=== PATIENT | male | born 1945 | race Caucasian/White ===

== ENCOUNTER 2024-04-05 08:13 | Outpatient (RCR) | payer OTHER, SELFPAY ==
--- NOTE | 2024-04-05 21:06 | CTCCONSULT_ITS ---
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 Patient has limited stage small cell lung cancer. Patient has been a smoker since the age of 16 and is a current smoker. Patient unfortunately also had a TURBT on 1013 and was diagnosed with bladder cancer. Patient was planned for chemotherapy with gemcitabine intravesically weekly but patient missed the appointment. Patient was to get gemcitabine and docetaxel weekly appli cation. Patient at baseline is on room air. Patient want to keep his treatment at reportable. He says he saw the foreign broadcast specialist who recommended c hemo RT. He was not offered mediastinoscope he or referral to surgeon for possible lobectomy. He de nies any PFTs being completed at [facility]. Patient was offered chemotherapy with concurrent radiation fol lowed by durvalumab. Patient is here to follow-up on his further care. 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 Education Level - Completed High School Marital Status - Tobacco Use Note - Smoked 58 yrs - 1PPD - still smoking- ETOH Use Note - Denies Drug Note - Denies Abuse/Neglect Note - Denies Social History Note 2 - Lifes with [employer] HISTORY: MEDICATIONS: melatonin atorvastatin doxazosin isosorbide mononitrate vitamin B complex labetalol hydrALAZINE calcium carb-D3-mag ox-zinc ox multivitamin vitamin E ferrous sulfate Vitamin D3 [cholecalciferol (vitamin d3)] CoQ10 SG 100 [ubidecarenone/vitamin e mixed] aspirin ALLERGIES: No Known Drug Allergies REVIEW OF SYSTEMS STATISTICIAN APPLIED: No headache, seizures or blurring of vision. GI: No nausea, vomiting, diarrhea or constipation. CVS: No palpitations or angina pains. Respiratory: No cough, chest pain or shortness of breath. VITAL SIGNS: Date 04/05/2024 Time 8:39 AM Vital Signs, Weight and PS ? ??T (F) (F) 98.6 ??P 80 ??B/P (mmHg) 101/78 ??Height (in) (inch) 70 ??Weight (lb) (lb) 236 ??BSA(D) (m*2) 2.24 PHYSICAL EXAMINATION: Alert oriented x 4 ,on room air thin built oral cavity is dry. Bilateral audible wheezing CVS: Rhythm regular, no murmurs or gallops present. Abdomen is soft. No hepatosplenomegaly. Extremities: No pedal edema or cyanosis. LABORATORY DATA: Date Time ASSESSMENT: #1 Limited stage small cell lung cancer As per documentation at [facility] patient's tumor has increased in size 2 to 3.2 cm left upper lobe solid m ass biopsy-proven to be small cell No other documentation of lymph node 1.8 cm soft tissue irregularity in the anterior urinary bladder wall from bladder cancer s/p TURBT Brain MRI negative PLAN: ??Carboplatin etoposide with the durvalumab with radiation Port catheter placement PFTs Pulmonary referral/cardiothoracic referral if PFTs are acceptable Patient also have cardiac bypass history so is unlikely to be a good candidate for lobectomy and will be a good candidate for chemo RT Radiation oncology referral ORDERS: Comprehensive Metabolic Panel - 12 + CBC with Auto Diff MD Follow Up 3 Week RETURN TO CLINIC: Prechemo lab check in 3 weeks Electrocardiographically signed by Dr. Rascon cc: TANISHA MANCILLA, Referring: JOSEPHINE MANCILLA Electronically Signed {Object.Sanct_Date} at {Object.Sanct_Time} {Object.Sanct_ID*PnP.NameFL@M}, {Object.Sanct_ID*PnP.Suffix@U} Patient: GRETA STEEN : 1945 MR#: [id number] Account: [id number] FOLLOW UP NOTE Page 4 of 4
--- NOTE | 2024-04-11 10:38 | CTCCONSULT_ITS ---
[facility] [address] [place], [place] [address] Consultation Note Date: 04/11/2024 MR#: [id number] Name: GRETA STEEN : 1945 Dx: C34.90 Malignant neoplasm of unspecified part of unspecified bronchus or lung Attending physician. Aylin Taylor MD Referring physician. Jose Rascon MD Reason for consultation. Patient with of Small cell CA lung limited to chest referred for radiation therapy to given along with chemotherapy. History of Present Illness: Patient is a 78-year-old smoker since age 16 who had lung biopsy showing neuroendocrine tumor consistent with small cell lung CA. Chest CT revealed a 24 mm pulmona ry mass left lower lobe as well as 4 mm pulm nodule right lower lobe. Also had TURBT at [facility] for 1.8 cm soft tissue irregularity reportedly revealing bladder CA. Brain MRI negative. Patient has alread y seen Dr. Rascon who has recommended carboplatin etoposide with durvalumab with radiation. Port du s been scheduled. Past Medical History: Hypertension dyslipidemia TURB bladder CA. Meds. 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 Denies cancer history in family Review of Systems: Noncontributory Physical Exam: General: Adequate nourished. Gentleman in no acute distress HEENT: Atraumatic supraclavicular adenopathy CV: Chest clear to auscultation heart rate irregular rhythm ABD: Soft no organomegaly or tenderness EXT: No signs of clubbing or edema Assessment:1. Patient with small cell CA of lung appearing to be limited to left chest. 2. Chemo XRT being planned with chemo being consisting of carboplatin etoposide with durvalumab unde r Dr. Rascon's direction. 3. Spoke to patient regarding 5400 cGy to the involved tumor site in left chest and adjacent hilar m ediastinal region. Side effects are explained. 4. Thank you very much for allowing to evaluate and manage this patient Cc: Cheyanne Taylor MD Electronically signed by: Chaka Zazueta MD, DABR 04/11/2024 10:36 AM
--- NOTE | 2024-04-11 10:39 | CTCTXPLN_ITS ---
[facility] [address] [place] [place], [place] [address] Physician Clinical Treatment Planning Note Date of Service: 04/11/2024 Name: GRETA Paredes.: 1945 The patient has agreed to proceed with Radiation therapy. Tests and supporting medical records were interpreted to assist in defining the tumor location and extent of disease. Further imaging will be necessary to contour and delineate the volume to which the XRT will be provided. A. Treatment Intent: Curative B. Modality: 6 MV C. Requested Technique: VMAT D. Treatment Site: Left chest E. Critical structures to be contoured on plan: F. In order to accomplish this plan, I am ordering/Prescribing the followin. Simulations (s) will be performed to accomplish a reproducible treatment position, to determine op timal treatment portals/beam arrangements, to design beam modifying devices and verify treatment port als on patient prior to the commencement of Radiation Therapy. Left chest 2. Devices; for immobilization and beam shaping: Vac-Purvi 3. CT Guidance for placement of XRT shen Scan area: 4. Portal images Frequency: 5. Invivo transit dose measurement once per week on all VMAT patients. 6. Special Physics Consult Requested for: 7. Other requests: Special procedures someone getting chemo and radiation curative G. Dose Objectives: Electronically signed by: Chaka Zazueta M.D. 04/11/2024 10:36 AM
--- NOTE | 2024-04-11 10:40 | CTCTXPLNST_ITS ---
Radiation Oncology Treatment Planning Sheet Name: GREAT STEEN MR#: [id number] : 1945 Dx: C34.90 Malignant neoplasm of unspecified part of unspecified bronchus or lung Date of Service: 04/11/2024 Account #: ?? Pt Treatment Intent: curative palliative other: Stage: Procedure CPT # Ordered Spec. Procedure 56977 1 Ross Complex (set-up) 47457 T1-T10 1 Ross Simple 58948 IMRT Plan 20829 1 MLC Devices VMAT 65774 3 Ross 3 D 39844 TRTMT dev Complex 36459 1 TRTMT dev simple 00261 Basic Jonathan 60359 9 Special Dosimetry 94431 Spec Physics 48960 Port Films 18775 SRS Cranial/1FX 32157 SBR 5 FX or Less /ex: 5 = 5 fx 16978 IMRT Simple 95018 5400 30 IMRT Complex 77508 IGRT 38533 25 Rad del com 6-10 17376 Rad del com 04-04 88396 Cont Med Physics 66545 6 Treatment Planning 13228 1 Rad del com 20 mev 04731 Rad del inter 10-24 42383 Rad del inter 04-04 64730 Rad del simple 6 80983 Rad del simple 04-04 61695 Special Port Plan 22668 TRTMT dev inter 94428 Isodose Complex 75658 Isodose simple 76754 Resp Motion Mgmt Simulation 09898 Placement of Fiducial Markers 15044 Electronically Signed By: hCaka Zazueta MD, DABR 04/11/2024 10:38 AM
== END 2024-04-15 23:59 | disposition home or self-care (01) ==
LOC: SCTC 08:13
PROVIDERS: PCP Internal Medicine; Referring Provider Internal Medicine; Visit Provider Radiology Therapeutic Radiology
DX: C34.12 Malignant neoplasm of upper lobe, left bronchus or lung (principal); C67.9 Malignant neoplasm of bladder, unspecified; F17.210 Nicotine dependence, cigarettes, uncomplicated
CPT/HCPCS: 99213; G0463

== ENCOUNTER 2024-04-18 08:03 | Outpatient (CLI) | payer OTHER, SELFPAY ==
[2024-04-12 15:33] VITALS: BMI 45.4
[2024-04-17 14:31] LABS: Basophils # (Auto) 0.1 Thou/mm3 (0.0-0.2); Basophils % (Auto) 1 % (0-2.5); Eosinophils # (Auto) 0.6 Thou/mm3 (0.0-0.5); Eosinophils % (Auto) 6 % (0-10); Hematocrit 40.8 % (41.0-53.0); Hemoglobin 13.4 g/dL (13.5-16.0); Immature Granulocytes % (Auto) 0 % (0-0); Immature Granulocytes Auto 0.04 Thou/mm3 (0.00-0.00); Lymphocytes # (Auto) 1.9 Thou/mm3 (1.0-4.8); Lymphocytes % (Auto) 19 % (10-50); Mean Corpuscular HGB Conc 32.8 g/dl (31.0-37.0); Mean Corpuscular Hemoglobin 28.8 pg (25.0-35.0); Mean Corpuscular Volume 88 fL (80-100); Monocytes % (Auto) 10 % (0-12); Neutrophils # (Auto) 6.3 Thou/mm3 (1.8-7.7); Neutrophils % (Auto) 63 % (37-80); Nucleated Red Blood Cell % 0 /100 WBC (0); Platelet Count 205 Thou/mm3 (140-440); RDW Standard Deviation 46.2 fL (35.1-43.9); Red Blood Count 4.66 Miln/mm3 (4.50-5.90)
[2024-04-17 14:39] LABS: Partial Thromboplastin Time 36.5 Seconds (22.0-36.0); Prothrombin Time 10.7 Seconds (9.0-12.2)
[2024-04-17 14:58] LABS: Blood Urea Nitrogen 28 mg/dL (9-23); Creatinine (Component) 1.4 mg/dL (0.6-1.3); Estimated Creatinine Clearance 68.2 mL/min (>60); eGFR 52 See Note
[2024-04-18] VITALS (13 sets, daily range): BP systolic 124–180; BP diastolic 67–98; PULSE 74–85; RESP 11–20; TEMP 36.3–36.6; O2SAT 95–99
--- NOTE | 2024-04-18 09:00 | XR_ITS ---
Examination: IR venous implantation Port-A-Cath Ultrasound-guided needle placement right internal jugular vein. Fluoroscopy AP Chest, portable single view Exam date and time: April 18, 2024 0937 hours INDICATIONS: Diagnosis malignant neoplasm lung, requiring long-term intravenous chemotherapy. Informed consent provided Technique: A timeout was completed, verifying correct patient, procedure, site, positioning, and special equipment if applicable The patient was placed in a dependent position appropriate for central line placement based on the vein to be cannulated. The patient's right neck was prepped and draped in sterile fashion. Maximum Sterile Barrier Technique used including cap, mask, sterile gown, sterile gloves, and sterile full body drape. If ultrasound technique used: sterile gel and sterile probe covers. Hand Hygiene performed using proper scrub, soap and water, or alcohol-based hand rub. Site right portable apparatus utilized to confirm patency of the right internal jugular vein Utilizing ultrasonographic guidance successful 20-gauge needle puncture into the right internal jugular vein Ultrasound images were recorded and stored. Successful micropuncture with a 21-gauge needle was performed. 0.18 wire guide was introduced into the IVC under fluoroscopic guidance. The wires is then exchanged for a 0.25 J-wire guide placed in the vena cava. Utilizing blunt dissection pocket formed subcutaneous in the upper chest Port-A-Cath reservoir connected to 22 cm 9 Macedonian catheter placed through venous sheath into the superior vena cava under fluoroscopic guidance Fluoroscopy 0.5 minute radiation dose 8.61 milligray The attending radiologist was present for the entire procedure Estimated blood loss2 cc. Findings: Under fluoroscopy, the tip of the Port-A-Cath is in good position in the vena cava. Portable chest x-ray, post Port-A-Cath placement, as ordered. Impression: Successful ultrasound-guided needle placement right internal jugular vein. Successful percutaneous or venous implantation Port-A-Cath. Fluoroscopy 0.5 minute radiation dose 8.61 milligray 1 spot fluoroscopic chest film. AP portable chest completion procedure demonstrates satisfactory position Port-A-Cath tip SVC. May use Port-A-Cath
[2024-04-18] MEDS: SODIUM CHLORIDE 0.9% 100 ML 20 ML IV (09:55)
[2024-04-18] MEDS: ceFAZolin 1 GM in SODIUM CHLORIDE 0.9% 100 ML IV (09:58)
[2024-04-18] MEDS: HEPARIN SOD LOCK SYR 100 UNIT/ML 500 UNIT STFIELD (10:29)
[2024-04-18] MEDS: ceFAZolin INJ 1 GM VIAL STFIELD (10:29)
[2024-04-18] MEDS: fentaNYL CIT INJ 50 mCg/ML AMP 2ML 100 MCG IVP (10:30)
[2024-04-18] MEDS: LIDOCAINE INJ PF 1% 30 ML VIAL 5 ML INFL (10:35)
[2024-04-18] MEDS: LIDOCAINE 1% W/EPI 1:100K 20 ML VIAL 5 ML INFL (10:35)
--- NOTE | 2024-04-18 14:32 | PC.NURSE ---
1115 patient is awake, alert, breathing unlabored, s/p port placement, dressing to right upper chest/neck dry with no active bleeding. report received from lenora FRIEDMAN, patient to recovery for 1hr and resume aspirin at home on wednesday04/21/24. 1229 patient is awake ,alert, breathing unlabored dressing dry with no bleeding, discharge instructions given to patient and family, patient discharged home in wheelchair with all belongings.
--- NOTE | 2024-04-28 13:17 | XR_ITS ---
Examination: IR staple removal Port-A-Cath incision site Exam date and time: April 28, 2024 1317 hours INDICATIONS: IR venous implantation Port-A-Cath April 18, 2024, patient returns for removal of the closure lisa TECHNIQUE AND FINDINGS: Informed consent provided. Timeout performed. Skin prepped over the Port-A-Cath reservoir site and sterile drape applied, hand hygiene Successful removal of the lisa at the Port-A-Cath incision site Estimated blood loss 0 cc IMPRESSION: Successful IR staple removal at the Port-A-Cath insertion site
== END 2024-04-18 12:29 | disposition home or self-care (01) ==
PROVIDERS: Radiology Diagnostic Radiology; PCP Internal Medicine; Referring Provider Internal Medicine Hematology & Oncology; Visit Provider Internal Medicine Hematology & Oncology
DX: C34.90 Malignant neoplasm of unspecified part of unspecified bronchus or lung (principal); Z01.812 Encounter for preprocedural laboratory examination
CPT/HCPCS: 36558; 36415; 76937; 77001; 82565; 84520; 85025; 85610; 85730; C1769; C1788; C1894; J0690; J1642; J3010; J3490; J7050

== ENCOUNTER 2024-04-28 08:36 | Outpatient (RCR) | payer OTHER, SELFPAY ==
--- NOTE | 2024-04-26 14:22 | CTCSNOTE_ITS ---
[facility] [address] [place], [place] [address] CT Simulation Note Date: 04/26/2024 MR# [id number] Name: GRETA STEEN : 1945 (A) DIAGNOSIS: C34.90 Malignant neoplasm of unspecified part of unspecified bronchus or lung (B) Patient was placed in supine position and used Vac-Purvi for immobilization purposes. (C) CT slices included chest (D) VMAT Will be needed for maximum sparing of adjacent normal critical structures. (E) Patient tolerated the simulation well and left the room in good condition. Electronically signed by: Chaka Zazueta MD, GORANR 04/26/2024 2:20 PM
== END 2024-05-16 23:59 | disposition home or self-care (01) ==
LOC: SCTC 08:36
PROVIDERS: PCP Internal Medicine; Referring Provider Internal Medicine; Visit Provider Radiology Therapeutic Radiology
DX: C34.92 Malignant neoplasm of unspecified part of left bronchus or lung (principal); C67.9 Malignant neoplasm of bladder, unspecified
CPT/HCPCS: 77014; 77290; 77300; 77301; 77334; 77338

== ENCOUNTER → 2024-04-28 | Outpatient (CLI) | payer OTHER, SELFPAY | END | disposition home or self-care (01) | LOC: SDIM 12:53 | PROVIDERS: PCP Internal Medicine Hematology & Oncology; Referring Provider Radiology Diagnostic Radiology; Visit Provider Radiology Diagnostic Radiology | DX: Z48.02 Encounter for removal of sutures (principal) ==

== ENCOUNTER 2024-06-16 09:17 | Outpatient (RCR) | payer OTHER, SELFPAY ==
[2024-05-22 08:18] LABS: Basophils # (Auto) 0.1 Thou/mm3 (0.0-0.2); Basophils % (Auto) 1 % (0-2.5); Eosinophils # (Auto) 0.6 Thou/mm3 (0.0-0.5); Eosinophils % (Auto) 6 % (0-10); Hematocrit 40.7 % (41.0-53.0); Hemoglobin 13.6 g/dL (13.5-16.0); Immature Granulocytes % (Auto) 0 % (0-0); Immature Granulocytes Auto 0.03 Thou/mm3 (0.00-0.00); Lymphocytes # (Auto) 1.9 Thou/mm3 (1.0-4.8); Lymphocytes % (Auto) 19 % (10-50); Mean Corpuscular HGB Conc 33.4 g/dl (31.0-37.0); Mean Corpuscular Hemoglobin 28.8 pg (25.0-35.0); Mean Corpuscular Volume 86 fL (80-100); Monocytes # (Auto) 1.1 Thou/mm3 (0.0-0.8); Monocytes % (Auto) 12 % (0-12); Neutrophils # (Auto) 6.1 Thou/mm3 (1.8-7.7); Neutrophils % (Auto) 62 % (37-80); Nucleated Red Blood Cell % 0 /100 WBC (0); Platelet Count 210 Thou/mm3 (140-440); RDW Standard Deviation 45.6 fL (35.1-43.9); Red Blood Count 4.73 Miln/mm3 (4.50-5.90); White Blood Count 9.9 Thou/mm3 (3.8-10.6)
[2024-05-22 08:40] LABS: Alanine Aminotransferase 16 U/L (10-49); Albumin, Serum 4.6 gm/dL (3.4-4.8); Albumin/Globulin Ratio 1.7 (1.2-2.2); Alkaline Phosphatase 58 U/L (46-116); Anion Gap 8 (7-16); Aspartate Amino Transferase 20 U/L (0-34); BUN/Creatinine Ratio 16 Ratio (12-20); Bilirubin,Total 0.3 mg/dL (0.3-1.2); Blood Urea Nitrogen 22 mg/dL (9-23); Calcium 9.5 mg/dL (8.3-10.6); Calcium (Corrected) 9.5 mg/dL (8.5-10.1); Carbon Dioxide 25.6 mMol/L (20.0-31.0); Chloride 106 mMol/L (98-107); Creatinine (Component) 1.4 mg/dL (0.6-1.3); Free T4 (Free Thyroxine) 1.27 ng/dL (0.89-1.76); Globulin 2.7 gm/dL (2.3-3.5); Glucose 90 mg/dL (74-106); Osmolality,Calculated 282 (275-295); Potassium 4.3 mMol/L (3.4-5.1); Sodium 140 mMol/L (136-145); Thyroid Stimulating Hormone 2.86 uIU/mL (0.55-4.78); Total Protein 7.3 gm/dL (5.7-8.2); eGFR 52 See Note
--- NOTE | 2024-05-30 16:50 | CTCFLWUP_ITS ---
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 Patient has limited stage small cell lung cancer. Patient has been a smoker since the age of 16 and is a current smoker. Patient unfortunately also had a TURBT on 1013 and was diagnosed with bladder cancer. Patient was planned for chemotherapy with gemcitabine intravesically weekly but patient missed the appointment. Patient was to get gemcitabine and docetaxel weekly appli cation. Patient at baseline is on room air. Patient want to keep his treatment at reportable. He says he saw the steward/stewardess banquet who recommended c hemo RT. He was not offered mediastinoscope he or referral to surgeon for possible lobectomy. He de nies any PFTs being completed at [facility]. Patient was offered chemotherapy with concurrent radiation fol lowed by durvalumab. Patient is here to follow-up on his further care. 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 aspirin - 81 mg 1 tab Daily 2. atorvastatin - 40 mg 1 tab Daily 3. calcium carb-D3-mag ox-zinc ox - 333 mg-133 unit -133 mg-5 mg 1 tab Daily 4. CoQ10 SG 100 - 100-100 mg-unit 1 Capsule Daily 5. doxazosin - 2 mg 1 tab Daily 6. Emend - 125 mg (1)- 80 mg (2) 1 Pack as directed 7. ferrous sulfate - 325 mg (65 mg iron) 1 tab Daily 8. hydrALAZINE - 50 mg 1 tab Daily 9. labetalol - 100 mg 1 tab Daily 10. melatonin - 5 mg 1 tab Every day before sleep 11. multivitamin - 1 tab Daily 12. vitamin B complex - 1 Capsule Daily 13. Vitamin D3 - 2,000 unit 1 tab Daily 14. vitamin E - 400 unit 1 tab Daily Medications Last Reconciled by Teresita Evangelista MA on 05/30/2024 ALLERGIES: No Known Drug Allergies REVIEW OF SYSTEMS: A complete 14-point review of systems was performed and is negative except as noted in interval histo ry. PHYSICAL EXAMINATION: VITAL SIGNS: Temperature?98.4, B/P?105/75, Oxygen?Saturation?96% Weight?235?lbs (Change?since?05/29/24 :?1?lbs) PAIN: 0 - No pain GENERAL APPEARANCE: Appears well, in no apparent distress, appropriately interactive. HEENT: Normocephalic, no temporal wasting, normal conjunctiva, no scleral icterus, normal hearing, li ps without lesions, neck normal range of motion. CARDIOVASCULAR: Not assessed. PULMONARY: Normal respiratory effort, no respiratory distress or use of accessory muscles, speaking i n full sentences, no tachypnea. EXTREMITIES: No pedal edema or cyanosis. SKIN: Normal skin appearance. NEUROLOGIC: Alert and oriented x4. PSHYCHIATRIC: Appropriate affect, mood normal, behavior normal, intact thought and speech. LABORATORY DATA: I have personally reviewed and interpreted each of the patient?s relevant lab tests, abnormal finding s are below: Date 05/22/24 ??WHITE?BLOOD?COUNT?(Thou/mm3) 9.9 ??RED?BLOOD?COUNT?(Miln/mm3) 4.73 ??HEMOGLOBIN?(gm/dl) 13.6 ??HEMATOCRIT?(%) 40.7?L ??PLATELET?COUNT?(Thou/mm3) 210 ??NEUTROPHILS?%,?AUTO?(%) 62 ??LYMPH?%,?AUTO?(%) 19 ??NEUTROPHILS,?AUTO?(Thou/mm3) 6.1 ASSESSMENT/PLAN: #1 Limited stage small cell lung cancer As per documentation at [facility] patient's tumor has increased in size 2 to 3.2 cm left upper lobe solid m ass biopsy-proven to be small cell No other documentation of lymph node 1.8 cm soft tissue irregularity in the anterior urinary bladder wall from bladder cancer s/p TURBT Brain MRI negative ??Carboplatin etoposide with the durvalumab with radiation Port catheter placement was done and patient received first cycle of chemotherapy PFTs show emphysema Pulmonary referral/cardiothoracic referral was completed Patient also have cardiac bypass history so is unlikely to be a good candidate for lobectomy and will be a good candidate for chemo RT Patient is receiving concurrent chemoradiation and doing well CBC CMP RETURN TO CLINIC: 6 weeks BILLING AND COMPLIANCE: I reviewed external records from providers outside my specialty as summarized above. I spent a total of 50 minutes on this patient?s care on the day of their visit excluding time spent related to any bi lled procedures. This time includes time spent with the patient as well as time spent documenting in the medical record, reviewing patients records and tests, obtaining history, placing orders, communi cating with other healthcare professionals, counseling the patient, family or caregiver, and/or care coordination for the diagnoses above. Electronically Signed by: Jose Rascon MD T: 4:47 PM CC: PCP: Jose Rascon Referring: Jose Rascon This document was completed utilizing speech recognition software. Grammatical errors, random word in sertions, pronoun errors, and incomplete sentences are an occasional consequence of this system due t o software limitations, ambient noise, and hardware issues. Any formal questions or concerns about th e content, text or information contained within the body of this dictation should be directly address ed to the provider for clarification.
[2024-06-09 11:56] LABS: Basophils % (Auto) 1 % (0-2.5); Eosinophils # (Auto) 0.1 Thou/mm3 (0.0-0.5); Eosinophils % (Auto) 4 % (0-10); Hemoglobin 12.1 g/dL (13.5-16.0); Immature Granulocytes % (Auto) 1 % (0-0); Immature Granulocytes Auto 0.02 Thou/mm3 (0.00-0.00); Lymphocytes # (Auto) 0.9 Thou/mm3 (1.0-4.8); Lymphocytes % (Auto) 42 % (10-50); Mean Corpuscular HGB Conc 33.6 g/dl (31.0-37.0); Mean Corpuscular Hemoglobin 28.7 pg (25.0-35.0); Mean Corpuscular Volume 86 fL (80-100); Monocytes # (Auto) 0.7 Thou/mm3 (0.0-0.8); Monocytes % (Auto) 34 % (0-12); Neutrophils # (Auto) 0.4 Thou/mm3 (1.8-7.7); Neutrophils % (Auto) 18 % (37-80); Nucleated Red Blood Cell % 0 /100 WBC (0); Platelet Count 176 Thou/mm3 (140-440); RDW Standard Deviation 46.5 fL (35.1-43.9); Red Blood Count 4.21 Miln/mm3 (4.50-5.90)
[2024-06-09 12:17] LABS: Alanine Aminotransferase 16 U/L (10-49); Albumin, Serum 4.6 gm/dL (3.4-4.8); Albumin/Globulin Ratio 1.9 (1.2-2.2); Alkaline Phosphatase 54 U/L (46-116); Anion Gap 9 (7-16); Aspartate Amino Transferase 17 U/L (0-34); BUN/Creatinine Ratio 20 Ratio (12-20); Bilirubin,Total 0.3 mg/dL (0.3-1.2); Blood Urea Nitrogen 24 mg/dL (9-23); Calcium 9.4 mg/dL (8.3-10.6); Calcium (Corrected) 9.4 mg/dL (8.5-10.1); Carbon Dioxide 23.1 mMol/L (20.0-31.0); Chloride 107 mMol/L (98-107); Creatinine (Component) 1.2 mg/dL (0.6-1.3); Globulin 2.4 gm/dL (2.3-3.5); Glucose 89 mg/dL (74-106); LDH (Lactate Dehydrogenase) 154 U/L (120-246); Osmolality,Calculated 280 (275-295); Potassium 4.1 mMol/L (3.4-5.1); Sodium 139 mMol/L (136-145); Thyroid Stimulating Hormone 1.83 uIU/mL (0.55-4.78); eGFR > 60 See Note
[2024-06-09 12:49] LABS: White Blood Count 2.1 Thou/mm3 (3.8-10.6)
[2024-06-16 11:06] LABS: Basophils # (Auto) 0.1 Thou/mm3 (0.0-0.2); Basophils % (Auto) 1 % (0-2.5); Eosinophils # (Auto) 0.1 Thou/mm3 (0.0-0.5); Eosinophils % (Auto) 2 % (0-10); Hematocrit 38.3 % (41.0-53.0); Hemoglobin 12.9 g/dL (13.5-16.0); Immature Granulocytes % (Auto) 2 % (0-0); Immature Granulocytes Auto 0.17 Thou/mm3 (0.00-0.00); Lymphocytes # (Auto) 1.2 Thou/mm3 (1.0-4.8); Lymphocytes % (Auto) 14 % (10-50); Mean Corpuscular HGB Conc 33.7 g/dl (31.0-37.0); Mean Corpuscular Hemoglobin 28.8 pg (25.0-35.0); Mean Corpuscular Volume 86 fL (80-100); Monocytes # (Auto) 1.3 Thou/mm3 (0.0-0.8); Monocytes % (Auto) 14 % (0-12); Neutrophils % (Auto) 68 % (37-80); Nucleated Red Blood Cell % 0 /100 WBC (0); Platelet Count 287 Thou/mm3 (140-440); RDW Standard Deviation 49.3 fL (35.1-43.9); Red Blood Count 4.48 Miln/mm3 (4.50-5.90); White Blood Count 8.9 Thou/mm3 (3.8-10.6)
[2024-06-16 12:22] LABS: Alanine Aminotransferase 16 U/L (10-49); Albumin, Serum 4.4 gm/dL (3.4-4.8); Albumin/Globulin Ratio 1.6 (1.2-2.2); Alkaline Phosphatase 56 U/L (46-116); Anion Gap 8 (7-16); Aspartate Amino Transferase 19 U/L (0-34); BUN/Creatinine Ratio 15 Ratio (12-20); Bilirubin,Total 0.4 mg/dL (0.3-1.2); Blood Urea Nitrogen 18 mg/dL (9-23); Calcium 9.3 mg/dL (8.3-10.6); Calcium (Corrected) 9.3 mg/dL (8.5-10.1); Carbon Dioxide 25.5 mMol/L (20.0-31.0); Chloride 108 mMol/L (98-107); Creatinine (Component) 1.2 mg/dL (0.6-1.3); Globulin 2.8 gm/dL (2.3-3.5); Glucose 98 mg/dL (74-106); Osmolality,Calculated 283 (275-295); Potassium 4.2 mMol/L (3.4-5.1); Sodium 141 mMol/L (136-145); Thyroid Stimulating Hormone 2.62 uIU/mL (0.55-4.78); Total Protein 7.2 gm/dL (5.7-8.2); eGFR > 60 See Note
[2024-06-16 13:54] LABS: LDH (Lactate Dehydrogenase) 182 U/L (120-246)
== END 2024-06-16 23:59 | disposition home or self-care (01) ==
LOC: SCTC 09:17
PROVIDERS: PCP Internal Medicine; Referring Provider Internal Medicine Hematology & Oncology; Visit Provider Internal Medicine Hematology & Oncology
DX: Z51.11 Encounter for antineoplastic chemotherapy (principal); Z51.0 Encounter for antineoplastic radiation therapy; C34.12 Malignant neoplasm of upper lobe, left bronchus or lung; C67.9 Malignant neoplasm of bladder, unspecified; F17.210 Nicotine dependence, cigarettes, uncomplicated; J43.9 Emphysema, unspecified; Z95.1 Presence of aortocoronary bypass graft
CPT/HCPCS: 36591; 77336; 77385; 80053; 83615; 84439; 84443; 85025; 96367; 96375; 96413; 96417; 99212; A4216; J1100; J1453; J1642; J2405; J3490; J7030; J7040; J7050; J9045; J9173; J9181; G0463

== ENCOUNTER 2024-07-14 07:49 | Outpatient (RCR) | payer OTHER, SELFPAY ==
--- NOTE | 2024-06-19 10:17 | CTCTRTNOTE_ITS ---
[facility] [address] [place], [place] [address] Weekly Management Date: 06/19/2024 ?? Name: GRETA STEEN : 1945 A. Patient is currently at 2330 cGy. Getting concurrent carboplatin etoposide durvalumab B. Patient is tolerating treatment well. Labs. 06/16/2024 WBC 8.9 hemoglobin 12.9 platelets 2 87,000 weight 236 stable. C. Resume radiation therapy. Has about 3 weeks left. Electronically signed by: Chaka Zazueta M.D. 06/19/2024 10:15 AM
--- NOTE | 2024-06-19 10:23 | CTCTRTNOTE_ITS ---
[facility] [address] [place], [place] [address] Weekly Management Date: 06/19/2024 ?? Name: GRETA Paredes.: 1945 As patient is doing well clinically with only small volume of area of treatment she will increase fractions size to 220 cGy with a last 3 weeks of treatment. Electronically signed by: Chaka Zazueta M.D. 06/19/2024 10:21 AM
[2024-07-07 09:33] LABS: Basophils % (Auto) 1 % (0-2.5); Eosinophils # (Auto) 0.2 Thou/mm3 (0.0-0.5); Eosinophils % (Auto) 9 % (0-10); Hematocrit 34.8 % (41.0-53.0); Hemoglobin 11.9 g/dL (13.5-16.0); Immature Granulocytes % (Auto) 1 % (0-0); Immature Granulocytes Auto 0.02 Thou/mm3 (0.00-0.00); Lymphocytes # (Auto) 0.7 Thou/mm3 (1.0-4.8); Lymphocytes % (Auto) 35 % (10-50); Mean Corpuscular HGB Conc 34.2 g/dl (31.0-37.0); Mean Corpuscular Hemoglobin 29.3 pg (25.0-35.0); Mean Corpuscular Volume 86 fL (80-100); Monocytes # (Auto) 0.6 Thou/mm3 (0.0-0.8); Monocytes % (Auto) 28 % (0-12); Neutrophils # (Auto) 0.5 Thou/mm3 (1.8-7.7); Neutrophils % (Auto) 26 % (37-80); Nucleated Red Blood Cell % 0 /100 WBC (0); Platelet Count 159 Thou/mm3 (140-440); RDW Standard Deviation 52.9 fL (35.1-43.9); Red Blood Count 4.06 Miln/mm3 (4.50-5.90)
[2024-07-07 09:44] LABS: White Blood Count 2.1 Thou/mm3 (3.8-10.6)
[2024-07-07 09:59] LABS: Path Review Blood Smear Sent to Pathologist
[2024-07-07 10:00] LABS: Alanine Aminotransferase 16 U/L (10-49); Albumin, Serum 4.2 gm/dL (3.4-4.8); Albumin/Globulin Ratio 1.7 (1.2-2.2); Alkaline Phosphatase 52 U/L (46-116); Anion Gap 10 (7-16); Aspartate Amino Transferase 18 U/L (0-34); BUN/Creatinine Ratio 18 Ratio (12-20); Bilirubin,Total 0.3 mg/dL (0.3-1.2); Blood Urea Nitrogen 22 mg/dL (9-23); Calcium 9.5 mg/dL (8.3-10.6); Calcium (Corrected) 9.5 mg/dL (8.5-10.1); Carbon Dioxide 24.5 mMol/L (20.0-31.0); Chloride 104 mMol/L (98-107); Creatinine (Component) 1.2 mg/dL (0.6-1.3); Globulin 2.5 gm/dL (2.3-3.5); Glucose 100 mg/dL (74-106); LDH (Lactate Dehydrogenase) 153 U/L (120-246); Osmolality,Calculated 278 (275-295); Potassium 4.3 mMol/L (3.4-5.1); Sodium 138 mMol/L (136-145); Thyroid Stimulating Hormone 2.03 uIU/mL (0.55-4.78); Total Protein 6.7 gm/dL (5.7-8.2); eGFR > 60 See Note
[2024-07-14 08:56] LABS: Basophils # (Auto) 0.1 Thou/mm3 (0.0-0.2); Basophils % (Auto) 1 % (0-2.5); Eosinophils # (Auto) 0.3 Thou/mm3 (0.0-0.5); Eosinophils % (Auto) 4 % (0-10); Hematocrit 35.8 % (41.0-53.0); Hemoglobin 12.1 g/dL (13.5-16.0); Immature Granulocytes % (Auto) 2 % (0-0); Immature Granulocytes Auto 0.11 Thou/mm3 (0.00-0.00); Lymphocytes % (Auto) 14 % (10-50); Mean Corpuscular HGB Conc 33.8 g/dl (31.0-37.0); Mean Corpuscular Hemoglobin 29.7 pg (25.0-35.0); Mean Corpuscular Volume 88 fL (80-100); Monocytes # (Auto) 0.9 Thou/mm3 (0.0-0.8); Monocytes % (Auto) 14 % (0-12); Neutrophils # (Auto) 4.5 Thou/mm3 (1.8-7.7); Neutrophils % (Auto) 66 % (37-80); Nucleated Red Blood Cell % 0 /100 WBC (0); Platelet Count 236 Thou/mm3 (140-440); RDW Standard Deviation 55.8 fL (35.1-43.9); Red Blood Count 4.08 Miln/mm3 (4.50-5.90); White Blood Count 6.8 Thou/mm3 (3.8-10.6)
[2024-07-14 09:27] LABS: Alanine Aminotransferase 17 U/L (10-49); Albumin, Serum 4.3 gm/dL (3.4-4.8); Albumin/Globulin Ratio 1.8 (1.2-2.2); Alkaline Phosphatase 56 U/L (46-116); Anion Gap 11 (7-16); Aspartate Amino Transferase < 10 U/L (0-34); BUN/Creatinine Ratio 15 Ratio (12-20); Bilirubin,Total 0.4 mg/dL (0.3-1.2); Blood Urea Nitrogen 19 mg/dL (9-23); Calcium 9.1 mg/dL (8.3-10.6); Calcium (Corrected) 9.1 mg/dL (8.5-10.1); Carbon Dioxide 23.1 mMol/L (20.0-31.0); Chloride 106 mMol/L (98-107); Creatinine (Component) 1.3 mg/dL (0.6-1.3); Globulin 2.4 gm/dL (2.3-3.5); Glucose 144 mg/dL (74-106); LDH (Lactate Dehydrogenase) 159 U/L (120-246); Osmolality,Calculated 284 (275-295); Potassium 3.8 mMol/L (3.4-5.1); Sodium 140 mMol/L (136-145); Thyroid Stimulating Hormone 2.04 uIU/mL (0.55-4.78); Total Protein 6.7 gm/dL (5.7-8.2); eGFR 57 See Note
== END 2024-07-14 23:59 | disposition home or self-care (01) ==
LOC: SCTC 07:49
PROVIDERS: PCP Internal Medicine; Referring Provider Internal Medicine; Visit Provider Internal Medicine Hematology & Oncology
DX: Z51.11 Encounter for antineoplastic chemotherapy (principal); Z51.0 Encounter for antineoplastic radiation therapy; C34.12 Malignant neoplasm of upper lobe, left bronchus or lung; C67.9 Malignant neoplasm of bladder, unspecified; F17.210 Nicotine dependence, cigarettes, uncomplicated; J43.9 Emphysema, unspecified
CPT/HCPCS: 36591; 77300; 77301; 77336; 77338; 77385; 80053; 83615; 84443; 85025; 96367; 96375; 96409; 96413; 96417; A4216; J1100; J1453; J1642; J2405; J3490; J7040; J7050; J9045; J9173; J9181

== ENCOUNTER 2024-08-11 07:08 | Outpatient (RCR) | payer OTHER, SELFPAY ==
--- NOTE | 2024-07-17 09:41 | CTCTRTNOTE_ITS ---
[facility] [address] [place], [place] [address] Weekly Management Date: 07/17/2024 ?? Name: GRETA ENIO Paredes.: 1945 A. Patient is currently at 5120 cGy. On rest a week ago due to myelosuppression. B. Labs 07/06/2024 6.8 WBC 4500 neutrophils. C. Resume radiation therapy. Completes XRT this week. Electronically signed by: Chaka Zazueta M.D. 07/17/2024 9:39 AM
--- NOTE | 2024-08-08 02:00 | CTCFLWUP_ITS ---
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 Patient has limited stage small cell lung cancer. Patient has been a smoker since the age of 16 and is a current smoker. Patient unfortunately also had a TURBT on 1013 and was diagnosed with bladder cancer. Patient was planned for chemotherapy with gemcitabine intravesically weekly but patient missed the appointment. Patient was to get gemcitabine and docetaxel weekly application. Patient at baseline is on room air. Patient want to keep his treatment at reportable. He says he saw the braille proofreader who recommended chemo RT. He was not offered mediastinoscope he or referral to surgeon for possible lobectomy. He denies any PFTs being completed at [facility]. Patient was offered chemotherapy with concurrent radiation followed by durvalumab. Patient is here to follow-up on his further care. 01/05/2024 CT-guided biopsy showed neuroendocrine tumors favoring small cell cancer 02/28/2024 TURBT showed bladder cancer OTHER MEDICAL HISTORY/CONDITIONS: Small cell lung cancer Small cell lung cancer - 12/2023 Bladder cancer - dx 12/28/23 CAD HTN Hyperlipidemia Insomia TURB - 12/28/23 - [facility] CABG x 3 - 2017- Charles - AAA repair - 2017 - Charles Left TKA - 2015 FAMILY HISTORY: Cancer History - - Denies family history cancer Family Cancer History - Denied - Yes SOCIAL HISTORY: Occupational History - Retired - [employer] Education Level - Completed High School Marital Status - Tobacco Use Note - Smoked 58 yrs - 1PPD - still smoking- ETOH Use Note - Denies Drug Note - Denies Abuse/Neglect Note - Denies Social History Note 2 - Lifes with MEDICATIONS: 1. aspirin - 81 mg 1 tab Daily 2. atorvastatin - 40 mg 1 tab Daily 3. calcium carb-D3-mag ox-zinc ox - 333 mg-133 unit -133 mg-5 mg 1 tab Daily 4. CoQ10 SG 100 - 100-100 mg-unit 1 Capsule Daily 5. doxazosin - 2 mg 1 tab Daily 6. Emend - 125 mg (1)- 80 mg (2) 1 Pack as directed 7. ferrous sulfate - 325 mg (65 mg iron) 1 tab Daily 8. hydrALAZINE - 50 mg 1 tab Daily 9. labetalol - 100 mg 1 tab Daily 10. melatonin - 5 mg 1 tab Every day before sleep 11. multivitamin - 1 tab Daily 12. vitamin B complex - 1 Capsule Daily 13. Vitamin D3 - 2,000 unit 1 tab Daily 14. vitamin E - 400 unit 1 tab Daily Medications Last Reconciled by Teresita Evangelista MA on 08/07/2024 ALLERGIES: No Known Drug Allergies REVIEW OF SYSTEMS: A complete 14-point review of systems was performed and is negative except as noted in interval history. PHYSICAL EXAMINATION: VITAL SIGNS: Temperature?97.6, B/P?150/80, Oxygen?Saturation?97% Weight?232?lbs (Change?since?08/03/24:?-2?lbs) PAIN: 2 - Mild pain ECOG Performance Status: 0 - Asymptomatic and fully active GENERAL APPEARANCE: Appears well, in no apparent distress, appropriately interactive. HEENT: Normocephalic, no temporal wasting, normal conjunctiva, no scleral icterus, normal hearing, lips without lesions, neck normal range of motion. CARDIOVASCULAR: Not assessed. PULMONARY: Normal respiratory effort, no respiratory distress or use of accessory muscles, speaking in full sentences, no tachypnea. EXTREMITIES: No pedal edema or cyanosis. SKIN: Normal skin appearance. NEUROLOGIC: Alert and oriented x4. PSHYCHIATRIC: Appropriate affect, mood normal, behavior normal, intact thought and speech. LABORATORY DATA: I have personally reviewed and interpreted each of the patient?s relevant lab tests, abnormal findings are below: Date 07/07/24 07/14/24 ??WHITE?BLOOD?COUNT?(Thou/mm3) 2.1?L 6.8 ??RED?BLOOD?COUNT?(Miln/mm3) 4.06?L 4.08?L ??HEMOGLOBIN?(gm/dl) 11.9?L 12.1?L ??HEMATOCRIT?(%) 34.8?L 35.8?L ??PLATELET?COUNT?(Thou/mm3) 159 236 ??NEUTROPHILS?%,?AUTO?(%) 26?L 66 ??LYMPH?%,?AUTO?(%) 35 14 ??NEUTROPHILS,?AUTO?(Thou/mm3) 0.5?L 4.5 ??GLUCOSE,RANDOM?(mg/dL) ? 144?H ??BLOOD?UREA?NITROGEN?(mg/dL) ? 19 ??CREATININE?(mg/dL) ? 1.30 ??SODIUM?(mmol/L) ? 140 ??POTASSIUM?(mmol/L) ? 3.8 ??CHLORIDE?(mmol/L) ? 106 ??CrCl?(CandG)?(ml/min) ? 57.79 ??AST/SGOT?(Unit/L) ? <?10 ??ALT/SGPT?(Unit/L) ? 17 ??ALKALINE?PHOSPHATASE?(Unit/L) ? 56 ??BILIRUBIN,?TOTAL?(mg/dL) ? 0.4 ??PROTEIN?TOTAL?(gm/dl) ? 6.7 ??ALBUMIN,?SERUM?(gm/dl) ? 4.3 ??GLOBULIN?(gm/dl) ? 2.4 ??ALBUMIN/GLOBULIN?RATIO ? 1.8 ??CALCIUM,?SERUM?(mg/dL) ? 9.1 ??CALCIUM?SERUM?(CORRECTED)?(mg/dL) ? 9.1 ??LDH,?TOTAL?(Unit/L) ? 159 ASSESSMENT/PLAN: #1 Limited stage small cell lung cancer As per documentation at [facility] patient's tumor has increased in size 2 to 3.2 cm left upper lobe solid mass biopsy-proven to be small cell No other documentation of lymph node 1.8 cm soft tissue irregularity in the anterior urinary bladder wall from bladder cancer s/p TURBT Brain MRI negative ??Carboplatin etoposide with the durvalumab with radiation PFTs show emphysema Pulmonary referral/cardiothoracic referral was completed Patient also have cardiac bypass history so is unlikely to be a good candidate for lobectomy and will be a good candidate for chemo RT Patient complted concurrent chemoradiation and doing well Will proceed with last cycle of chemotherapy and maintance durvalumab Will follow on pet ct for response to treatment If negative ,will do prophylactic brain radiation ORDERS: Order # Description [id number] Follow Up Appointment [id number] Initial PET/CT of Skull to Mid-Thigh [id number] Comprehensive Metabolic Panel - 12 + CBC with Auto Diff [id number] Follow Up 2 Months RETURN TO CLINIC: 4 weeks with pet scan BILLING AND COMPLIANCE: I reviewed external records from providers outside my specialty as summarized above. I spent a total of 50 minutes on this patient?s care on the day of their visit excluding time spent related to any billed procedures. This time includes time spent with the patient as well as time spent documenting in the medical record, reviewing patients records and tests, obtaining history, placing orders, communicating with other healthcare professionals, counseling the patient, family or caregiver, and/or care coordination for the diagnoses above. Electronically Signed by: Jose Rascon MD T: 1:58 AM CC: PCP: Aylin Taylor Referring: Aylin Taylor This document was completed utilizing speech recognition software. Grammatical errors, random word insertions, pronoun errors, and incomplete sentences are an occasional consequence of this system due to software limitations, ambient noise, and hardware issues. Any formal questions or concerns about the content, text or information contained within the body of this dictation should be directly addressed to the provider for clarification.
[2024-08-08 12:37] LABS: Basophils # (Auto) 0.1 Thou/mm3 (0.0-0.2); Basophils % (Auto) 1 % (0-2.5); Eosinophils # (Auto) 0.2 Thou/mm3 (0.0-0.5); Eosinophils % (Auto) 4 % (0-10); Hematocrit 32.2 % (41.0-53.0); Hemoglobin 10.9 g/dL (13.5-16.0); Immature Granulocytes % (Auto) 2 % (0-0); Immature Granulocytes Auto 0.12 Thou/mm3 (0.00-0.00); Lymphocytes # (Auto) 0.9 Thou/mm3 (1.0-4.8); Lymphocytes % (Auto) 14 % (10-50); Mean Corpuscular HGB Conc 33.9 g/dl (31.0-37.0); Mean Corpuscular Hemoglobin 29.2 pg (25.0-35.0); Mean Corpuscular Volume 86 fL (80-100); Monocytes # (Auto) 1.1 Thou/mm3 (0.0-0.8); Monocytes % (Auto) 18 % (0-12); Neutrophils # (Auto) 3.8 Thou/mm3 (1.8-7.7); Neutrophils % (Auto) 62 % (37-80); Nucleated Red Blood Cell % 0 /100 WBC (0); Platelet Count 220 Thou/mm3 (140-440); RDW Standard Deviation 55.2 fL (35.1-43.9); Red Blood Count 3.73 Miln/mm3 (4.50-5.90); White Blood Count 6.1 Thou/mm3 (3.8-10.6)
[2024-08-08 12:59] LABS: Alanine Aminotransferase 15 U/L (10-49); Albumin, Serum 4.2 gm/dL (3.4-4.8); Albumin/Globulin Ratio 1.7 (1.2-2.2); Alkaline Phosphatase 56 U/L (46-116); Anion Gap 9 (7-16); Aspartate Amino Transferase 20 U/L (0-34); BUN/Creatinine Ratio 16 Ratio (12-20); Bilirubin,Total 0.4 mg/dL (0.3-1.2); Blood Urea Nitrogen 19 mg/dL (9-23); Calcium 9.9 mg/dL (8.3-10.6); Calcium (Corrected) 9.9 mg/dL (8.5-10.1); Carbon Dioxide 25.5 mMol/L (20.0-31.0); Chloride 105 mMol/L (98-107); Creatinine (Component) 1.2 mg/dL (0.6-1.3); Globulin 2.5 gm/dL (2.3-3.5); Glucose 98 mg/dL (74-106); Osmolality,Calculated 279 (275-295); Potassium 4.4 mMol/L (3.4-5.1); Sodium 139 mMol/L (136-145); Thyroid Stimulating Hormone 1.56 uIU/mL (0.55-4.78); Total Protein 6.7 gm/dL (5.7-8.2); eGFR > 60 See Note
[2024-08-08 15:58] LABS: LDH (Lactate Dehydrogenase) 156 U/L (120-246); Magnesium 1.9 mg/dL (1.6-2.6)
== END 2024-08-14 23:59 | disposition home or self-care (01) ==
LOC: SCTC 07:08
PROVIDERS: Internal Medicine Hematology & Oncology; PCP Internal Medicine; Referring Provider Internal Medicine; Visit Provider Radiology Therapeutic Radiology
DX: Z51.11 Encounter for antineoplastic chemotherapy (principal); Z51.0 Encounter for antineoplastic radiation therapy; C34.12 Malignant neoplasm of upper lobe, left bronchus or lung; C67.9 Malignant neoplasm of bladder, unspecified; F17.210 Nicotine dependence, cigarettes, uncomplicated; J43.9 Emphysema, unspecified
CPT/HCPCS: 36591; 77336; 77385; 80053; 83615; 83735; 84443; 85025; 96367; 96375; 96413; 96417; 99212; A4216; J1100; J1453; J1642; J2405; J3490; J7040; J7050; J9045; J9173; J9181; G0463

== ENCOUNTER → 2024-08-28 | Outpatient (CLI) | payer OTHER, SELFPAY ==
[2024-08-28 09:07] LABS: Collection Type, Urine Clean Catch
[2024-08-28 09:48] LABS: Creatinine,Random Urine 83 mg/dL (30-125)
[2024-08-28 09:49] LABS: Bilirubin,Urine Negative (Negative); Blood,Urine Negative (Negative); Clarity,Urine Clear (Clear/Hazy); Color,Urine Yellow (Lt Yel-Yel); Glucose, Urine Negative (Negative); Ketones,Urine Negative (Negative); Leukocyte Esterase,Urine Negative (Negative); Nitrite,Urine Negative (Negative); PH,Urine 6.5 (5.0-7.0); Protein,Urine Negative (Neg - Trace); RBC,Urine 4 /hpf (0-3); Specific Gravity,Urine 1.017 (1.001-1.035); Squamous Epithelial Cell,Urine < 1 /hpf (0-5); Urobilinogen,Urine Negative mg/dL (0.0-1.0); WBC,Urine 1 /hpf (0-5)
[2024-08-28 09:52] LABS: Cardiac Risk Estimate 2.5 RATIO (4.0-6.7); Cholesterol 102 mg/dL (132-200); HDL Cholesterol 41 mg/dL (40-60); LDL Cholesterol,Calculated 46 mg/dL (0-130); Triglycerides 75 mg/dL (30-150); Uric Acid 5.7 mg/dL (3.7-9.2)
[2024-08-28 09:55] LABS: Vitamin B12 1096 pg/mL (211-911); Vitamin D 25 Hydroxy Total 52.3 ng/mL (7.3-40.2)
== END | disposition home or self-care (01) ==
LOC: COPL 08:34
PROVIDERS: PCP Internal Medicine; Referring Provider Internal Medicine; Visit Provider Internal Medicine
DX: E78.2 Mixed hyperlipidemia (principal); I12.9 Hypertensive chronic kidney disease with stage 1 through stage 4 chronic kidney disease, or unspecified chronic kidney disease; N18.30 Chronic kidney disease, stage 3 unspecified; R31.29 Other microscopic hematuria; D51.9 Vitamin B12 deficiency anemia, unspecified; E55.9 Vitamin D deficiency, unspecified
CPT/HCPCS: 36415; 80061; 81001; 82306; 82570; 82607; 83970; 84443; 84550

== ENCOUNTER 2024-09-06 07:49 | Outpatient (RCR) | payer OTHER, SELFPAY ==
[2024-09-04 11:17] LABS: Basophils # (Auto) 0.1 Thou/mm3 (0.0-0.2); Basophils % (Auto) 1 % (0-2.5); Eosinophils # (Auto) 0.1 Thou/mm3 (0.0-0.5); Eosinophils % (Auto) 2 % (0-10); Hematocrit 30.2 % (41.0-53.0); Immature Granulocytes % (Auto) 1 % (0-0); Immature Granulocytes Auto 0.07 Thou/mm3 (0.00-0.00); Lymphocytes # (Auto) 0.9 Thou/mm3 (1.0-4.8); Lymphocytes % (Auto) 10 % (10-50); Mean Corpuscular HGB Conc 33.1 g/dl (31.0-37.0); Mean Corpuscular Hemoglobin 29.7 pg (25.0-35.0); Mean Corpuscular Volume 90 fL (80-100); Monocytes # (Auto) 1.4 Thou/mm3 (0.0-0.8); Monocytes % (Auto) 16 % (0-12); Neutrophils % (Auto) 70 % (37-80); Nucleated Red Blood Cell % 0 /100 WBC (0); Platelet Count 280 Thou/mm3 (140-440); RDW Standard Deviation 56.9 fL (35.1-43.9); Red Blood Count 3.37 Miln/mm3 (4.50-5.90); White Blood Count 8.6 Thou/mm3 (3.8-10.6)
[2024-09-04 11:48] LABS: Alanine Aminotransferase 12 U/L (10-49); Albumin, Serum 4.2 gm/dL (3.4-4.8); Albumin/Globulin Ratio 1.6 (1.2-2.2); Alkaline Phosphatase 61 U/L (46-116); Anion Gap 7 (7-16); Aspartate Amino Transferase 15 U/L (0-34); BUN/Creatinine Ratio 15 Ratio (12-20); Bilirubin,Total 0.4 mg/dL (0.3-1.2); Blood Urea Nitrogen 20 mg/dL (9-23); Calcium 9.1 mg/dL (8.3-10.6); Calcium (Corrected) 9.1 mg/dL (8.5-10.1); Carbon Dioxide 25.1 mMol/L (20.0-31.0); Chloride 105 mMol/L (98-107); Creatinine (Component) 1.3 mg/dL (0.6-1.3); Globulin 2.6 gm/dL (2.3-3.5); Glucose 113 mg/dL (74-106); Osmolality,Calculated 277 (275-295); Potassium 4.1 mMol/L (3.4-5.1); Sodium 137 mMol/L (136-145); Thyroid Stimulating Hormone 1.02 uIU/mL (0.55-4.78); Total Protein 6.8 gm/dL (5.7-8.2); eGFR 57 See Note
== END 2024-09-13 23:59 | disposition home or self-care (01) ==
LOC: SCTC 07:49
PROVIDERS: Internal Medicine Hematology & Oncology; PCP Internal Medicine; Referring Provider Internal Medicine; Visit Provider Radiology Therapeutic Radiology
DX: Z51.11 Encounter for antineoplastic chemotherapy (principal); C34.12 Malignant neoplasm of upper lobe, left bronchus or lung; C67.9 Malignant neoplasm of bladder, unspecified; Z92.3 Personal history of irradiation
CPT/HCPCS: 36591; 80053; 84443; 85025; 96367; 96413; A4216; J1642; J2405; J7040; J7050; J9173

== ENCOUNTER → 2024-09-22 | Outpatient (CLI) | payer OTHER, SELFPAY ==
--- NOTE | 2024-09-22 12:30 | XR_ITS ---
EXAMINATION: PET/CT FUSION SKULL TO THIGH EXAM DATE AND TIME: September 22, [address] chest December 22, 2023 CT abdomen pelvis 02/10/2023 INDICATIONS: Diagnosis lung cancer prior to treatment, staging, CT chest December 22, 2023 24 mm pulmonary mass left lower lobe 4 mm pulmonary nodule right lower lobe CTDI:vol (mGy) 8.16 DLP: (mGycm) 745 PROCEDURE: 16.43 mCi FDG was administered intravenously To allow for distribution and uptake of radiotracer, the patient was allowed to rest quietly in a shielded room. Imaging was performed on an integrated 16-slice PET/CT scanner, with scanning from the skull base to the mid thigh. Serum blood glucose at the time of the injection was measured 119 mg/dL. CT scanning was performed without oral or intravenous contrast material. FINDINGS: Head and Neck: There is no shruthi hypermetabolism in the neck. The visualized portions of the brain are normal in appearance on CT. Chest: Non hypermetabolic moderate left pleural effusion No current pulmonary nodule Abdomen and Pelvis: There is no shruthi hypermetabolism in retroperitoneal or pelvic chains. The spleen is normal in size and FDG avidity. Musculoskeletal: Marrow uptake is within normal range. IMPRESSION: The 24 mm pulmonary mass left lower lobe noted on the CT chest December 22, 2023 is not currently visualized, no new pulmonary nodules noted Moderate left pleural effusion
== END | disposition home or self-care (01) ==
LOC: CDIM 12:13
PROVIDERS: Referring Provider Internal Medicine Hematology & Oncology; Visit Provider Internal Medicine Hematology & Oncology
DX: C34.90 Malignant neoplasm of unspecified part of unspecified bronchus or lung (principal); J90 Pleural effusion, not elsewhere classified
CPT/HCPCS: 78815; A9552

== ENCOUNTER 2024-10-05 11:20 | Outpatient (RCR) | payer OTHER, SELFPAY ==
--- NOTE | 2024-09-26 11:52 | CTCFLWUP_ITS ---
Patient: GRETA STEEN : 1945 Page 2 of 2 FOLLOW UP NOTE DATE OF SERVICE: 09/26/2024 NAME: GRETA STEEN ACCOUNT: [id number] : 1945 AGE: 79 INTERVAL HISTORY: Subjective: Chief Complaint Follow-up after PET-CT scan, resumed smoking History of Present Illness Mr. Wali Lindsay, a patient with a history of lung cancer and emphysema, presents for follow-up after completing chemoradiation. The patient recently underwent a PET-CT scan on 09/22/2024, which showed no evidence of the previously noted 24mm pulmonary mass in the left lower lobe. Since his last visit on 07/18/2024, the patient has completed chemoradiation with a positive outcome, as the PET scan is now negative and all lung abnormalities have resolved. However, the patient has resumed smoking despite previous treatments and advice against it due to lung damage from surgery, radiation, and chemotherapy. He continues to have emphysema and is scheduled for another infusion of durvalumab as part of his ongoing treatment plan. The patient reports no side effects from his last treatment. A moderate left pleural effusion was noted on the recent PET-CT, which is likely due to radiation damage. The patient's emphysema persists, affecting his lung capacity. Despite the positive response to cancer treatment, the patient's decision to resume smoking may impact his overall health status and lung function. Medications and Supplements - Durvalumab - Administered via infusion - Continuing for 24 months - No side effects reported from last treatment Review of Systems General: Negative for weight loss, fatigue. Respiratory: Negative for side effects from treatment. 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 DATE OF DIAGNOSIS: 04/09/2024 STAGE/TNM: TREATMENT HISTORY: Care?Plan Start?Date Cycle Day Intent 1?Small?cell,?Atezo,?Carbo,?Etoposide?IMpower?Study 04/09/2024 1 21 Curative?(primary) CISplatin?75?mg/m*2,?Etoposide?with?XRT?for?limited?small?cell?lung?ca 04/09/2024 1 21 Curative?(adjuvant) SC-CASPIAN?study-?-Carbo/Etoposide?+?Durvolumab 05/22/2024 1 21 Curative?(primary) 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 Patient has limited stage small cell lung cancer. Patient has been a smoker since the age of 16 and is a current smoker. Patient unfortunately also had a TURBT on 1013 and was diagnosed with bladder cancer. Patient was planned for chemotherapy with gemcitabine intravesically weekly but patient missed the appointment. Patient was to get gemcitabine and docetaxel weekly application. Patient at baseline is on room air. Patient want to keep his treatment at reportable. He says he saw the exploration manager who recommended chemo RT. He was not offered mediastinoscope he or referral to surgeon for possible lobectomy. He denies any PFTs being completed at [facility]. Patient was offered chemotherapy with concurrent radiation followed by durvalumab. Patient is here to follow-up on his further care. 01/05/2024 CT-guided biopsy showed neuroendocrine tumors favoring small cell cancer 02/28/2024 TURBT showed bladder cancer OTHER MEDICAL HISTORY/CONDITIONS: Small cell lung cancer Small cell lung cancer - 12/2023 Bladder cancer - dx 12/28/23 CAD HTN Hyperlipidemia Insomia TURB - 12/28/23 - [facility] CABG x 3 - 2018- [facility] - AAA repair - 2018 - [facility] Left TKA - 2015 FAMILY HISTORY: Cancer History - - Denies family history cancer Family Cancer History - Denied - Yes SOCIAL HISTORY: Occupational History - Retired - [employer] Education Level - Completed High School Marital Status - Tobacco Use Note - Smoked 60 yrs - 1PPD - still smoking- ETOH Use Note - Denies Drug Note - Denies Abuse/Neglect Note - Denies Social History Note 2 - Lifes with MEDICATIONS: 1. aspirin - 81 mg 1 tab Daily 2. atorvastatin - 40 mg 1 tab Daily 3. calcium carb-D3-mag ox-zinc ox - 333 mg-133 unit -133 mg-5 mg 1 tab Daily 4. CoQ10 SG 100 - 100-100 mg-unit 1 Capsule Daily 5. doxazosin - 2 mg 1 tab Daily 6. ferrous sulfate - 325 mg (65 mg iron) 1 tab Daily 7. hydrALAZINE - 25 mg 1 tab Twice a Day 8. labetalol - 100 mg 1 tab Daily 9. melatonin - 5 mg 1 tab Every day before sleep 10. multivitamin - 1 tab Daily 11. vitamin B complex - 1 Capsule Daily 12. Vitamin D3 - 2,000 unit 1 tab Daily 13. vitamin E - 400 unit 1 tab Daily Medications Last Reconciled by Fanny Santos MA on 09/26/2024 ALLERGIES: No Known Drug Allergies REVIEW OF SYSTEMS: A complete 14-point review of systems was performed and is negative except as noted in interval history. PHYSICAL EXAMINATION: VITAL SIGNS: Temperature?99.1, B/P?144/82, Oxygen?Saturation?96% Weight?223?lbs (Change?since?09/06/24:?-5.6?lbs) PAIN: 5 - Between moderate and severe pain ECOG Performance Status: 0 - Asymptomatic and fully active GENERAL APPEARANCE: Appears well, in no apparent distress, appropriately interactive. HEENT: Normocephalic, no temporal wasting, normal conjunctiva, no scleral icterus, normal hearing, lips without lesions, neck normal range of motion. CARDIOVASCULAR: Not assessed. PULMONARY: Normal respiratory effort, no respiratory distress or use of accessory muscles, speaking in full sentences, no tachypnea. EXTREMITIES: No pedal edema or cyanosis. SKIN: Normal skin appearance. NEUROLOGIC: Alert and oriented x4. PSHYCHIATRIC: Appropriate affect, mood normal, behavior normal, intact thought and speech. LABORATORY DATA: I have personally reviewed and interpreted each of the patient?s relevant lab tests, abnormal findings are below: Date 08/08/24 09/04/24 ??WHITE?BLOOD?COUNT?(Thou/mm3) 6.1 8.6 ??RED?BLOOD?COUNT?(Miln/mm3) 3.73?L 3.37?L ??HEMOGLOBIN?(gm/dl) 10.9?L 10.0?L ??HEMATOCRIT?(%) 32.2?L 30.2?L ??PLATELET?COUNT?(Thou/mm3) 220 280 ??NEUTROPHILS?%,?AUTO?(%) 62 70 ??LYMPH?%,?AUTO?(%) 14 10 ??NEUTROPHILS,?AUTO?(Thou/mm3) 3.8 6.0 ??GLUCOSE,RANDOM?(mg/dL) 98 113?H ??BLOOD?UREA?NITROGEN?(mg/dL) 19 20 ??CREATININE?(mg/dL) 1.20 1.30 ??SODIUM?(mmol/L) 139 137 ??POTASSIUM?(mmol/L) 4.4 4.1 ??CHLORIDE?(mmol/L) 105 105 ??CrCl?(CandG)?(ml/min) 62.76 56.59 ??AST/SGOT?(Unit/L) 20 15 ??ALT/SGPT?(Unit/L) 15 12 ??ALKALINE?PHOSPHATASE?(Unit/L) 56 61 ??BILIRUBIN,?TOTAL?(mg/dL) 0.4 0.4 ??PROTEIN?TOTAL?(gm/dl) 6.7 6.8 ??ALBUMIN,?SERUM?(gm/dl) 4.2 4.2 ??GLOBULIN?(gm/dl) 2.5 2.6 ??ALBUMIN/GLOBULIN?RATIO 1.7 1.6 ??CALCIUM,?SERUM?(mg/dL) 9.9 9.1 ??CALCIUM?SERUM?(CORRECTED)?(mg/dL) 9.9 9.1 ASSESSMENT/PLAN: #1 Limited stage small cell lung cancer As per documentation at [facility] patient's tumor has increased in size 2 to 3.2 cm left upper lobe solid mass biopsy-proven to be small cell 1.8 cm soft tissue irregularity in the anterior urinary bladder wall from bladder cancer s/p TURBT Brain MRI negative ??Carboplatin etoposide with the durvalumab with radiation PFTs show emphysema Assessment and Plan: Wali Lindsay, with a history of lung cancer and bypass surgery, presents for follow-up after completing chemoradiation, with recent negative PET scan results. Lung Cancer Assessment: Patient completed chemoradiation for previously diagnosed lung cancer. Recent PET-CT scan on 09/22/2024 shows no evidence of the previously noted 24mm pulmonary mass in the left lower lobe. No new pulmonary nodules were identified. These findings suggest a favorable response to treatment, pot entially indicating remission. However, close monitoring is necessary due to the risk of recurrence. Plan: - Continue durvalumab infusions for a total of 24 months - Schedule Netera test for early detection of cancer recurrence - Recommend prophylactic brain radiation - Follow up in 3 months - Advise patient to report any weight loss or fatigue immediately Smoking Assessment: Patient has resumed smoking, which is concerning given their history of lung cancer and recent treatment. This behavior increases the risk of cancer recurrence and may further compromise lung function, especially considering the patient's history of lung surgery, radiation, and chemotherapy. Plan: - Strongly advise against smoking due to increased risk of cancer recurrence and further lung damage - Recommend nicotine patches or edibles as smoking cessation aids - Educate on the importance of smoking cessation for maintaining remission and overall health Pleural Effusion Assessment: Moderate left pleural effusion noted on recent PET-CT scan. This finding is likely a consequence of radiation therapy to the chest area. Plan: - Order chest X-ray to confirm and monitor pleural effusion Emphysema Assessment: Patient has a known diagnosis of emphysema, which may be exacerbated by recent cancer treatments and resumed smoking. Plan: - Recommend daily breathing exercises to improve lung capacity - Educate on the importance of smoking cessation to prevent further lung damage History of Cardiac Bypass Surgery Assessment: Patient has a history of cardiac bypass surgery, requiring ongoing cardiac monitoring. Plan: - Continue follow-up with rock wool applicator ORDERS: Order # Description [id number] CXR PA and Lat [id number] Comprehensive Metabolic Panel - 12 + CBC with Auto Diff [id number] MD Follow Up 3 Months RETURN TO CLINIC: BILLING AND COMPLIANCE: I reviewed external records from providers outside my specialty as summarized above. I spent a total of 50 minutes on this patient?s care on the day of their visit excluding time spent related to any billed procedures. This time includes time spent with the patient as well as time spent documenting in the medical record, reviewing patients records and tests, obtaining history, placing orders, communicating with other healthcare professionals, counseling the patient, family or caregiver, and/or care coordination for the diagnoses above. Electronically Signed by: Jose Rascon MD T: 11:49 AM CC: PCP: Jose Rascon Referring: Jose Rascon This document was completed utilizing speech recognition software. Grammatical errors, random word insertions, pronoun errors, and incomplete sentences are an occasional consequence of this system due to software limitations, ambient noise, and hardware issues. Any formal questions or concerns about the content, text or information contained within the body of this dictation should be directly addressed to the provider for clarification.
[2024-10-03 09:40] LABS: Basophils # (Auto) 0.1 Thou/mm3 (0.0-0.2); Basophils % (Auto) 1 % (0-2.5); Eosinophils # (Auto) 1.7 Thou/mm3 (0.0-0.5); Eosinophils % (Auto) 16 % (0-10); Hematocrit 33.3 % (41.0-53.0); Hemoglobin 10.9 g/dL (13.5-16.0); Immature Granulocytes % (Auto) 0 % (0-0); Immature Granulocytes Auto 0.03 Thou/mm3 (0.00-0.00); Lymphocytes # (Auto) 1.1 Thou/mm3 (1.0-4.8); Lymphocytes % (Auto) 10 % (10-50); Mean Corpuscular HGB Conc 32.7 g/dl (31.0-37.0); Mean Corpuscular Hemoglobin 29.6 pg (25.0-35.0); Mean Corpuscular Volume 91 fL (80-100); Monocytes # (Auto) 1.1 Thou/mm3 (0.0-0.8); Monocytes % (Auto) 10 % (0-12); Neutrophils # (Auto) 6.9 Thou/mm3 (1.8-7.7); Neutrophils % (Auto) 64 % (37-80); Nucleated Red Blood Cell % 0 /100 WBC (0); Platelet Count 198 Thou/mm3 (140-440); RDW Standard Deviation 55.5 fL (35.1-43.9); Red Blood Count 3.68 Miln/mm3 (4.50-5.90); White Blood Count 10.9 Thou/mm3 (3.8-10.6)
[2024-10-03 10:25] LABS: Alanine Aminotransferase 12 U/L (10-49); Albumin, Serum 4.2 gm/dL (3.4-4.8); Albumin/Globulin Ratio 1.6 (1.2-2.2); Alkaline Phosphatase 75 U/L (46-116); Anion Gap 11 (7-16); Aspartate Amino Transferase 16 U/L (0-34); BUN/Creatinine Ratio 21 Ratio (12-20); Bilirubin,Total 0.3 mg/dL (0.3-1.2); Blood Urea Nitrogen 30 mg/dL (9-23); Calcium 8.9 mg/dL (8.3-10.6); Calcium (Corrected) 8.9 mg/dL (8.5-10.1); Carbon Dioxide 23.9 mMol/L (20.0-31.0); Chloride 109 mMol/L (98-107); Creatinine (Component) 1.4 mg/dL (0.6-1.3); Globulin 2.6 gm/dL (2.3-3.5); Glucose 106 mg/dL (74-106); LDH (Lactate Dehydrogenase) 174 U/L (120-246); Osmolality,Calculated 293 (275-295); Potassium 4.4 mMol/L (3.4-5.1); Sodium 144 mMol/L (136-145); Total Protein 6.8 gm/dL (5.7-8.2); eGFR 52 See Note
== END 2024-10-14 23:59 | disposition home or self-care (01) ==
LOC: SCTC 11:20
PROVIDERS: PCP Internal Medicine; Referring Provider Internal Medicine Hematology & Oncology; Visit Provider Radiology Therapeutic Radiology
DX: Z51.11 Encounter for antineoplastic chemotherapy (principal); C34.12 Malignant neoplasm of upper lobe, left bronchus or lung; C67.9 Malignant neoplasm of bladder, unspecified; F17.210 Nicotine dependence, cigarettes, uncomplicated; I10 Essential (primary) hypertension
CPT/HCPCS: 36591; 80053; 83615; 84443; 85025; 96367; 96413; 99212; 99213; A4216; J1642; J2405; J7040; J7050; J9173; G0463

== ENCOUNTER 2024-11-13 07:48 | Outpatient (RCR) | payer OTHER, SELFPAY ==
[2024-10-31 13:53] LABS: Basophils # (Auto) 0.1 Thou/mm3 (0.0-0.2); Basophils % (Auto) 1 % (0-2.5); Eosinophils # (Auto) 0.6 Thou/mm3 (0.0-0.5); Eosinophils % (Auto) 6 % (0-10); Hematocrit 34.6 % (41.0-53.0); Hemoglobin 11.6 g/dL (13.5-16.0); Immature Granulocytes % (Auto) 0 % (0-0); Immature Granulocytes Auto 0.03 Thou/mm3 (0.00-0.00); Lymphocytes # (Auto) 1.2 Thou/mm3 (1.0-4.8); Lymphocytes % (Auto) 12 % (10-50); Mean Corpuscular HGB Conc 33.5 g/dl (31.0-37.0); Mean Corpuscular Volume 84 fL (80-100); Monocytes % (Auto) 10 % (0-12); Neutrophils # (Auto) 6.8 Thou/mm3 (1.8-7.7); Neutrophils % (Auto) 70 % (37-80); Nucleated Red Blood Cell % 0 /100 WBC (0); Platelet Count 266 Thou/mm3 (140-440); RDW Standard Deviation 48.6 fL (35.1-43.9); Red Blood Count 4.14 Miln/mm3 (4.50-5.90); White Blood Count 9.7 Thou/mm3 (3.8-10.6)
[2024-10-31 14:23] LABS: Alanine Aminotransferase 12 U/L (10-49); Albumin, Serum 4.4 gm/dL (3.4-4.8); Albumin/Globulin Ratio 1.6 (1.2-2.2); Alkaline Phosphatase 70 U/L (46-116); Anion Gap 10 (7-16); Aspartate Amino Transferase 18 U/L (0-34); BUN/Creatinine Ratio 16 Ratio (12-20); Bilirubin,Total 0.3 mg/dL (0.3-1.2); Blood Urea Nitrogen 22 mg/dL (9-23); Calcium 9.6 mg/dL (8.3-10.6); Calcium (Corrected) 9.6 mg/dL (8.5-10.1); Carbon Dioxide 25.3 mMol/L (20.0-31.0); Chloride 106 mMol/L (98-107); Creatinine (Component) 1.4 mg/dL (0.6-1.3); Globulin 2.7 gm/dL (2.3-3.5); Glucose 96 mg/dL (74-106); Osmolality,Calculated 284 (275-295); Potassium 4.4 mMol/L (3.4-5.1); Sodium 141 mMol/L (136-145); Thyroid Stimulating Hormone 1.22 uIU/mL (0.55-4.78); Total Protein 7.1 gm/dL (5.7-8.2); eGFR 52 See Note
== END 2024-11-13 23:59 | disposition home or self-care (01) ==
LOC: SCTC 07:48
PROVIDERS: PCP Internal Medicine; Referring Provider Internal Medicine; Visit Provider Internal Medicine Hematology & Oncology
DX: Z51.11 Encounter for antineoplastic chemotherapy (principal); Z51.0 Encounter for antineoplastic radiation therapy; C34.12 Malignant neoplasm of upper lobe, left bronchus or lung; J90 Pleural effusion, not elsewhere classified
CPT/HCPCS: 36591; 77014; 77280; 77290; 77295; 77300; 77334; 77336; 77412; 80053; 84443; 85025; 96367; 96413; A4216; J1642; J2405; J7050; J9173

== ENCOUNTER 2024-12-12 08:45 | Outpatient (RCR) | payer OTHER, SELFPAY ==
[2024-11-28 09:16] LABS: Basophils # (Auto) 0.1 Thou/mm3 (0.0-0.2); Basophils % (Auto) 1 % (0-2.5); Eosinophils # (Auto) 0.6 Thou/mm3 (0.0-0.5); Eosinophils % (Auto) 6 % (0-10); Hematocrit 36.2 % (41.0-53.0); Hemoglobin 12.0 g/dL (13.5-16.0); Immature Granulocytes Auto 0.03 Thou/mm3 (0.00-0.00); Lymphocytes # (Auto) 1.0 Thou/mm3 (1.0-4.8); Lymphocytes % (Auto) 12 % (10-50); Mean Corpuscular HGB Conc 33.1 g/dl (31.0-37.0); Mean Corpuscular Hemoglobin 26.9 pg (25.0-35.0); Mean Corpuscular Volume 81 fL (80-100); Monocytes # (Auto) 0.9 Thou/mm3 (0.0-0.8); Monocytes % (Auto) 10 % (0-12); Neutrophils # (Auto) 6.3 Thou/mm3 (1.8-7.7); Neutrophils % (Auto) 71 % (37-80); Nucleated Red Blood Cell # 0.00 Thou/mm3 (0.00-0.00); Nucleated Red Blood Cell % 0 /100 WBC (0); Platelet Count 235 Thou/mm3 (140-440); RDW Standard Deviation 48.2 fL (35.1-43.9); Red Blood Count 4.46 Miln/mm3 (4.50-5.90); White Blood Count 8.9 Thou/mm3 (3.8-10.6)
[2024-11-28 09:35] LABS: Alanine Aminotransferase 10 U/L (10-49); Albumin, Serum 4.2 gm/dL (3.4-4.8); Albumin/Globulin Ratio 1.4 (1.2-2.2); Alkaline Phosphatase 70 U/L (46-116); Anion Gap 10 (7-16); Aspartate Amino Transferase 18 U/L (0-34); BUN/Creatinine Ratio 11 Ratio (12-20); Bilirubin,Total 0.5 mg/dL (0.3-1.2); Blood Urea Nitrogen 14 mg/dL (9-23); Calcium 9.5 mg/dL (8.3-10.6); Calcium (Corrected) 9.5 mg/dL (8.5-10.1); Carbon Dioxide 25.5 mMol/L (20.0-31.0); Chloride 106 mMol/L (98-107); Creatinine (Component) 1.3 mg/dL (0.6-1.3); Globulin 2.9 gm/dL (2.3-3.5); Glucose 107 mg/dL (74-106); Osmolality,Calculated 281 (275-295); Potassium 4.3 mMol/L (3.4-5.1); Sodium 141 mMol/L (136-145); Thyroid Stimulating Hormone 1.22 uIU/mL (0.55-4.78); Total Protein 7.1 gm/dL (5.7-8.2); eGFR 57 See Note
== END 2024-12-14 23:59 | disposition home or self-care (01) ==
LOC: SCTC 08:45
PROVIDERS: Internal Medicine Hematology & Oncology; PCP Internal Medicine; Referring Provider Internal Medicine; Visit Provider Radiology Therapeutic Radiology
DX: Z51.0 Encounter for antineoplastic radiation therapy (principal); Z51.11 Encounter for antineoplastic chemotherapy; C34.90 Malignant neoplasm of unspecified part of unspecified bronchus or lung
CPT/HCPCS: 36415; 36430; 36591; 77336; 77412; 77417; 80053; 84443; 85025; 96361; 96366; 96367; 96372; 96375; 96413; 96415; 99212; A4216; J1642; J2405; J7050; J9173; G0463

== ENCOUNTER 2025-02-01 07:41 | Outpatient (RCR) | payer OTHER, SELFPAY ==
[2025-01-16 09:44] LABS: Basophils # (Auto) 0.1 Thou/mm3 (0.0-0.2); Basophils % (Auto) 1 % (0-2.5); Eosinophils # (Auto) 0.5 Thou/mm3 (0.0-0.5); Eosinophils % (Auto) 5 % (0-10); Hematocrit 37.7 % (41.0-53.0); Hemoglobin 12.3 g/dL (13.5-16.0); Immature Granulocytes Auto 0.04 Thou/mm3 (0.00-0.00); Lymphocytes # (Auto) 1.0 Thou/mm3 (1.0-4.8); Lymphocytes % (Auto) 10 % (10-50); Mean Corpuscular HGB Conc 32.6 g/dl (31.0-37.0); Mean Corpuscular Hemoglobin 26.3 pg (25.0-35.0); Mean Corpuscular Volume 81 fL (80-100); Monocytes # (Auto) 1.0 Thou/mm3 (0.0-0.8); Monocytes % (Auto) 11 % (0-12); Neutrophils # (Auto) 7.0 Thou/mm3 (1.8-7.7); Neutrophils % (Auto) 73 % (37-80); Nucleated Red Blood Cell # 0.00 Thou/mm3 (0.00-0.00); Nucleated Red Blood Cell % 0 /100 WBC (0); Platelet Count 230 Thou/mm3 (140-440); RDW Standard Deviation 49.1 fL (35.1-43.9); Red Blood Count 4.68 Miln/mm3 (4.50-5.90); White Blood Count 9.6 Thou/mm3 (3.8-10.6)
[2025-01-16 10:28] LABS: Alanine Aminotransferase 10 U/L (10-49); Albumin, Serum 4.4 gm/dL (3.4-4.8); Albumin/Globulin Ratio 1.6 (1.2-2.2); Alkaline Phosphatase 71 U/L (46-116); Anion Gap 13 (7-16); Aspartate Amino Transferase 15 U/L (0-34); BUN/Creatinine Ratio 14 Ratio (12-20); Bilirubin,Total 0.5 mg/dL (0.3-1.2); Blood Urea Nitrogen 21 mg/dL (9-23); Calcium 10.1 mg/dL (8.3-10.6); Calcium (Corrected) 10.1 mg/dL (8.5-10.1); Carbon Dioxide 24.5 mMol/L (20.0-31.0); Chloride 103 mMol/L (98-107); Creatinine (Component) 1.5 mg/dL (0.6-1.3); Globulin 2.8 gm/dL (2.3-3.5); Glucose 101 mg/dL (74-106); Osmolality,Calculated 282 (275-295); Potassium 4.2 mMol/L (3.4-5.1); Sodium 140 mMol/L (136-145); Thyroid Stimulating Hormone 1.74 uIU/mL (0.55-4.78); Total Protein 7.2 gm/dL (5.7-8.2); eGFR 48 See Note
[2025-01-18 10:06] LABS: Alanine Aminotransferase 11 U/L (10-49); Albumin, Serum 4.3 gm/dL (3.4-4.8); Albumin/Globulin Ratio 1.5 (1.2-2.2); Alkaline Phosphatase 71 U/L (46-116); Anion Gap 9 (7-16); Aspartate Amino Transferase 17 U/L (0-34); BUN/Creatinine Ratio 13 Ratio (12-20); Bilirubin,Total 0.3 mg/dL (0.3-1.2); Blood Urea Nitrogen 18 mg/dL (9-23); Calcium 9.7 mg/dL (8.3-10.6); Calcium (Corrected) 9.7 mg/dL (8.5-10.1); Carbon Dioxide 24.6 mMol/L (20.0-31.0); Chloride 106 mMol/L (98-107); Creatinine (Component) 1.4 mg/dL (0.6-1.3); Globulin 2.9 gm/dL (2.3-3.5); Glucose 115 mg/dL (74-106); Osmolality,Calculated 282 (275-295); Potassium 4.2 mMol/L (3.4-5.1); Sodium 140 mMol/L (136-145); Total Protein 7.2 gm/dL (5.7-8.2); eGFR 52 See Note
--- NOTE | 2025-01-29 07:30 | CTCFLWUP_ITS ---
Patient: GRETA STEEN : 1945 Page 3 of 6 FOLLOW UP NOTE DATE OF SERVICE: 01/25/2025 NAME: GRETA STEEN ACCOUNT: [id number] : 1945 AGE: 79 INTERVAL HISTORY: Subjective: Chief Complaint Follow-up after PET-CT scan, resumed smoking History of Present Illness Mr. Wali Lindsay, a patient with a history of lung cancer and emphysema, presents for follow-up after completing chemoradiation. The patient recently underwent a PET-CT scan on 09/22/2024, which showed no evidence of the previously noted 24mm pulmonary mass in the left lower lobe. Since his last visit on 07/18/2024, the patient has completed chemoradiation with a positive outcome, as the PET scan is now negative and all lung abnormalities have resolved. However, the patient has resumed smoking despite previous treatments and advice against it due to lung damage from surgery, radiation, and chemotherapy. He continues to have emphysema and is scheduled for another infusion of durvalumab as part of his ongoing treatment plan. The patient reports no side effects from his last treatment. A moderate left pleural effusion was noted on the recent PET-CT, which is likely due to radiation damage. The patient's emphysema persists, affecting his lung capacity. Despite the positive response to cancer treatment, the patient's decision to resume smoking may impact his overall health status and lung function. Medications and Supplements - Durvalumab - Administered via infusion - Continuing for 24 months - No side effects reported from last treatment Review of Systems General: Negative for weight loss, fatigue. Respiratory: Negative for side effects from treatment. Objective: Laboratory, Imaging, and Diagnostic Test Results - PET-CT scan (09/22/2024): - 24mm pulmonary mass in left lower lobe (noted on CT chest on 12/22/2023) is not currently visualized - No new pulmonary nodules - Moderate left pleural effusion Patient have completed his concurrent chemo radiotherapy ONCOLOGY HISTORY:?CloneBlock Oncology Hx? 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 DATE OF DIAGNOSIS: 04/09/2024 STAGE/TNM: TREATMENT HISTORY: Care?Plan Start?Date Cycle Day Intent 1?Small?cell,?Atezo,?Carbo,?Etoposide?IMpower?Study 04/09/2024 1 21 Curative?(primary) CISplatin?75?mg/m*2,?Etoposide?with?XRT?for?limited?small?cell?lung?ca 04/09/2024 1 21 Curative?(adjuvant) SC-CASPIAN?study-?-Carbo/Etoposide?+?Durvolumab 05/22/2024 1 21 Curative?(primary) 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 Patient has limited stage small cell lung cancer. Patient has been a smoker since the age of 16 and is a current smoker. Patient unfortunately also had a TURBT on 1013 and was diagnosed with bladder cancer. Patient was planned for chemotherapy with gemcitabine intravesically weekly but patient missed the appointment. Patient was to get gemcitabine and docetaxel weekly application. Patient at baseline is on room air. Patient want to keep his treatment at reportable. He says he saw the property management specialist who recommended chemo RT. He was not offered mediastinoscope he or referral to surgeon for possible lobectomy. He denies any PFTs being completed at [facility]. Patient was offered chemotherapy with concurrent radiation followed by durvalumab. Patient is here to follow-up on his further care. 01/05/2024 CT-guided biopsy showed neuroendocrine tumors favoring small cell cancer 02/28/2024 TURBT showed bladder cancer OTHER MEDICAL HISTORY/CONDITIONS: Small cell lung cancer Small cell lung cancer - 12/2023 Bladder cancer - dx 12/28/23 CAD HTN Hyperlipidemia Insomia TURB - 12/28/23 - [facility] CABG x 3 - 2017- [facility] - AAA repair - 2017 - [facility] Left TKA - 2015 FAMILY HISTORY: Cancer History - - Denies family history cancer Family Cancer History - Denied - Yes SOCIAL HISTORY: Occupational History - Retired - [employer] Education Level - Completed High School Marital Status - Tobacco Use Note - Smoked 58 yrs - 1PPD - still smoking- ETOH Use Note - Denies Drug Note - Denies Abuse/Neglect Note - Denies Social History Note 2 - Lifes with MEDICATIONS: 1. aspirin - 81 mg 1 tab Daily 2. atorvastatin - 40 mg 1 tab Daily 3. calcium carb-D3-mag ox-zinc ox - 333 mg-133 unit -133 mg-5 mg 1 tab Daily 4. CoQ10 SG 100 - 100-100 mg-unit 1 Capsule Daily 5. doxazosin - 2 mg 1 tab Daily 6. ferrous sulfate - 325 mg (65 mg iron) 1 tab Daily 7. hydrALAZINE - 25 mg 1 tab Twice a Day 8. labetalol - 100 mg 1 tab Daily 9. melatonin - 5 mg 1 tab Every day before sleep 10. memantine - 5 mg 1 tab once daily 11. MEMANTINE HCL - 10 mg Twice a Day 12. multivitamin - 1 tab Daily 13. vitamin B complex - 1 Capsule Daily 14. Vitamin D3 - 2,000 unit 1 tab Daily 15. vitamin E - 400 unit 1 tab Daily?Palabra Meds? Medications Last Reconciled by Fanny Santos MA on 09/26/2024 ALLERGIES: No Known Drug Allergies REVIEW OF SYSTEMS: A complete 14-point review of systems was performed and is negative except as noted in interval history. PHYSICAL EXAMINATION:?CloneBlock PE? VITAL SIGNS: GENERAL APPEARANCE: Appears well, in no apparent distress, appropriately interactive. HEENT: Normocephalic, no temporal wasting, normal conjunctiva, no scleral icterus, normal hearing, lips without lesions, neck normal range of motion. CARDIOVASCULAR: Not assessed. PULMONARY: Normal respiratory effort, no respiratory distress or use of accessory muscles, speaking in full sentences, no tachypnea. EXTREMITIES: No pedal edema or cyanosis. SKIN: Normal skin appearance. NEUROLOGIC: Alert and oriented x4. PSHYCHIATRIC: Appropriate affect, mood normal, behavior normal, intact thought and speech. LABORATORY DATA: I have personally reviewed and interpreted each of the patient?s relevant lab tests, abnormal findings are below: Date 11/28/24 01/16/25 01/18/25 ??WHITE?BLOOD?COUNT?(Thou/mm3) 8.9 9.6 ? ??RED?BLOOD?COUNT?(Miln/mm3) 4.46?L 4.68 ? ??HEMOGLOBIN?(gm/dl) 12.0?L 12.3?L ? ??HEMATOCRIT?(%) 36.2?L 37.7?L ? ??PLATELET?COUNT?(Thou/mm3) 235 230 ? ??NEUTROPHILS?%,?AUTO?(%) 71 73 ? ??LYMPH?%,?AUTO?(%) 12 10 ? ??NEUTROPHILS,?AUTO?(Thou/mm3) 6.3 7.0 ? ??GLUCOSE,RANDOM?(mg/dL) ? 101 115?H ??BLOOD?UREA?NITROGEN?(mg/dL) ? 21 18 ??CREATININE?(mg/dL) ? 1.50?H 1.40?H ??SODIUM?(mmol/L) ? 140 140 ??POTASSIUM?(mmol/L) ? 4.2 4.2 ??CHLORIDE?(mmol/L) ? 103 106 ??CrCl?(CandG)?(ml/min) ? 52.81 56.81 ??AST/SGOT?(Unit/L) ? 15 17 ??ALT/SGPT?(Unit/L) ? 10 11 ??ALKALINE?PHOSPHATASE?(Unit/L) ? 71 71 ??BILIRUBIN,?TOTAL?(mg/dL) ? 0.5 0.3 ??PROTEIN?TOTAL?(gm/dl) ? 7.2 7.2 ??ALBUMIN,?SERUM?(gm/dl) ? 4.4 4.3 ??GLOBULIN?(gm/dl) ? 2.8 2.9 ??ALBUMIN/GLOBULIN?RATIO ? 1.6 1.5 ??CALCIUM,?SERUM?(mg/dL) ? 10.1 9.7 ??CALCIUM?SERUM?(CORRECTED)?(mg/dL) ? 10.1 9.7 ASSESSMENT/PLAN:?Charles Rascon Assessment/Plan? #1 Limited stage small cell lung cancer As per documentation at [facility] patient's tumor has increased in size 2 to 3.2 cm left upper lobe solid mass biopsy-proven to be small cell 1.8 cm soft tissue irregularity in the anterior urinary bladder wall from bladder cancer s/p TURBT Brain MRI negative ?? PFTs show emphysema Patient completed chemoradiation Carboplatin etoposide with the durvalumab with radiation for Recent PET-CT scan on 09/22/2024 shows no evidence of the previously noted 24mm pulmonary mass in the left lower lobe. No new pulmonary nodules were identified. These findings suggest a favorable response to treatment, potentially indicating remission. However, close monitoring is necessary due to the risk of recurrence. - Continue durvalumab infusions for a total of 24 months - Schedule Netera test for early detection of cancer recurrence - Recommend prophylactic brain radiation - PET ordered - Advise patient to report any weight loss or fatigue immediately Smoking Assessment: Patient has resumed smoking, which is concerning given their history of lung cancer and recent treatment. This behavior increases the risk of cancer recurrence and may further compromise lung function, especially considering the patient's history of lung surgery, radiation, and chemotherapy. Plan: - Strongly advise against smoking due to increased risk of cancer recurrence and further lung damage - Recommend nicotine patches or edibles as smoking cessation aids - Educate on the importance of smoking cessation for maintaining remission and overall health Pleural Effusion Assessment: Moderate left pleural effusion noted on recent PET-CT scan. This finding is likely a consequence of radiation therapy to the chest area.x ray not completed Plan: - Ordered pet ct Emphysema Assessment: Patient has a known diagnosis of emphysema, which may be exacerbated by recent cancer treatments and resumed smoking. Plan: - Recommend daily breathing exercises to improve lung capacity - Educate on the importance of smoking cessation to prevent further lung damage History of Cardiac Bypass Surgery Assessment: Patient has a history of cardiac bypass surgery, requiring ongoing cardiac monitoring. Plan: - Continue follow-up with agile project manager ORDERS: Order # Description [id number] Comprehensive Metabolic Panel - 12 + CBC with Auto Diff [id number] Thyroid Stimulating Hormone + Assay Triiodothyronine (T3) [id number] Follow Up 2 Months RETURN TO CLINIC: I reviewed the diagnosis, prognosis, and recommended treatment/procedure options with the patient (and/or their legal event sales representative), including the potential benefits, risks, side effects and alternative therapies. We also discussed the option of no treatment and the possibility of clinical trial participation, if applicable. All questions were addressed, and they demonstrated understanding. They provided informed consent to proceed with the proposed plan of care. BILLING AND COMPLIANCE: I reviewed external records from providers outside my specialty as summarized above. I spent a total of 50 minutes on this patient?s care on the day of their visit excluding time spent related to any billed procedures. This time includes time spent with the patient as well as time spent documenting in the medical record, reviewing patients records and tests, obtaining history, placing orders, communicating with other healthcare professionals, counseling the patient, family or caregiver, and/or care coordination for the diagnoses above. Electronically Signed by: Jose Rascon MD T: 7:27 AM CC: PCP: Aylin Taylor Referring: Aylin Taylor This document was completed utilizing speech recognition software. Grammatical errors, random word insertions, pronoun errors, and incomplete sentences are an occasional consequence of this system due to software limitations, ambient noise, and hardware issues. Any formal questions or concerns about the content, text or information contained within the body of this dictation should be directly addressed to the provider for clarification.
== END 2025-02-13 23:59 | disposition home or self-care (01) ==
LOC: SCTC 07:41
PROVIDERS: PCP Internal Medicine; Referring Provider Internal Medicine; Visit Provider Internal Medicine Hematology & Oncology
DX: Z51.11 Encounter for antineoplastic chemotherapy (principal); C34.12 Malignant neoplasm of upper lobe, left bronchus or lung; C67.3 Malignant neoplasm of anterior wall of bladder; J43.9 Emphysema, unspecified; Z92.3 Personal history of irradiation; F17.210 Nicotine dependence, cigarettes, uncomplicated; Z71.6 Tobacco abuse counseling; J90 Pleural effusion, not elsewhere classified; Z95.1 Presence of aortocoronary bypass graft
CPT/HCPCS: 36591; 80053; 84443; 85025; 96367; 96413; A4216; J1642; J2405; J3490; J7030; J9173

== ENCOUNTER 2025-03-14 09:40 | Outpatient (RCR) | payer OTHER, SELFPAY ==
[2025-02-28 08:30] LABS: Basophils # (Auto) 0.1 Thou/mm3 (0.0-0.2); Basophils % (Auto) 1 % (0-2.5); Eosinophils # (Auto) 0.5 Thou/mm3 (0.0-0.5); Eosinophils % (Auto) 6 % (0-10); Hematocrit 34.7 % (41.0-53.0); Hemoglobin 11.6 g/dL (13.5-16.0); Immature Granulocytes Auto 0.03 Thou/mm3 (0.00-0.00); Lymphocytes # (Auto) 1.0 Thou/mm3 (1.0-4.8); Lymphocytes % (Auto) 13 % (10-50); Mean Corpuscular HGB Conc 33.4 g/dl (31.0-37.0); Mean Corpuscular Hemoglobin 27.0 pg (25.0-35.0); Mean Corpuscular Volume 81 fL (80-100); Monocytes # (Auto) 0.7 Thou/mm3 (0.0-0.8); Monocytes % (Auto) 9 % (0-12); Neutrophils # (Auto) 5.6 Thou/mm3 (1.8-7.7); Neutrophils % (Auto) 71 % (37-80); Nucleated Red Blood Cell # 0.00 Thou/mm3 (0.00-0.00); Nucleated Red Blood Cell % 0 /100 WBC (0); Platelet Count 214 Thou/mm3 (140-440); RDW Standard Deviation 50.1 fL (35.1-43.9); Red Blood Count 4.30 Miln/mm3 (4.50-5.90); White Blood Count 7.9 Thou/mm3 (3.8-10.6)
[2025-02-28 09:01] LABS: Alanine Aminotransferase 10 U/L (10-49); Albumin, Serum 4.4 gm/dL (3.4-4.8); Albumin/Globulin Ratio 1.7 (1.2-2.2); Alkaline Phosphatase 61 U/L (46-116); Anion Gap 10 (7-16); Aspartate Amino Transferase 19 U/L (0-34); BUN/Creatinine Ratio 12 Ratio (12-20); Bilirubin,Total 0.6 mg/dL (0.3-1.2); Blood Urea Nitrogen 16 mg/dL (9-23); Calcium 9.6 mg/dL (8.3-10.6); Calcium (Corrected) 9.6 mg/dL (8.5-10.1); Carbon Dioxide 24.9 mMol/L (20.0-31.0); Chloride 105 mMol/L (98-107); Creatinine (Component) 1.3 mg/dL (0.6-1.3); Globulin 2.6 gm/dL (2.3-3.5); Glucose 107 mg/dL (74-106); Osmolality,Calculated 280 (275-295); Potassium 4.4 mMol/L (3.4-5.1); Sodium 140 mMol/L (136-145); Thyroid Stimulating Hormone 1.53 uIU/mL (0.55-4.78); Total Protein 7.0 gm/dL (5.7-8.2); eGFR 57 See Note
--- NOTE | 2025-03-14 13:05 | CTCFLWUP_ITS ---
Patient: GRETA STEEN : 1945 Page 3 of 6 FOLLOW UP NOTE DATE OF SERVICE: 03/14/2025 NAME: GRETA STEEN ACCOUNT: [id number] : 1945 AGE: 79 INTERVAL HISTORY: Subjective: Chief Complaint Lost about 20 pounds of weight, resumed smoking. No side effects from immunotherapy History of Present Illness Mr. Wali Lindsay, a patient with a history of lung cancer and emphysema, presents for follow-up after completing chemoradiation. The patient recently underwent a PET-CT scan on 09/22/2024, which showed no evidence of the previously noted 24mm pulmonary mass in the left lower lobe. Since his last visit on 07/18/2024, the patient has completed chemoradiation with a positive outcome, as the PET scan is now negative and all lung abnormalities have resolved. However, the patient has resumed smoking despite previous treatments and advice against it due to lung damage from surgery, radiation, and chemotherapy. He continues to have emphysema and is scheduled for another infusion of durvalumab as part of his ongoing treatment plan. The patient reports no side effects from his last treatment. A moderate left pleural effusion was noted on the recent PET-CT, which is likely due to radiation damage. The patient's emphysema persists, affecting his lung capacity. Despite the positive response to cancer treatment, the patient's decision to resume smoking may impact his overall health status and lung function. Medications and Supplements - Durvalumab - Administered via infusion - Continuing for 24 months - No side effects reported from last treatment Review of Systems General: Negative for weight loss, fatigue. Respiratory: Negative for side effects from treatment. 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 DATE OF DIAGNOSIS: 04/09/2024 STAGE/TNM: TREATMENT HISTORY: Care?Plan Start?Date Cycle Day Intent 1?Small?cell,?Atezo,?Carbo,?Etoposide?IMpower?Study 04/09/2024 1 21 Curative?(primary) CISplatin?75?mg/m*2,?Etoposide?with?XRT?for?limited?small?cell?lung?ca 04/09/2024 1 21 Curative?(adjuvant) SC-CASPIAN?study-?-Carbo/Etoposide?+?Durvolumab 05/22/2024 1 21 Curative?(primary) 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 Patient has limited stage small cell lung cancer. Patient has been a smoker since the age of 16 and is a current smoker. Patient unfortunately also had a TURBT on 1013 and was diagnosed with bladder cancer. Patient was planned for chemotherapy with gemcitabine intravesically weekly but patient missed the appointment. Patient was to get gemcitabine and docetaxel weekly application. Patient at baseline is on room air. Patient want to keep his treatment at reportable. He says he saw the packing clerk who recommended chemo RT. He was not offered mediastinoscope he or referral to surgeon for possible lobectomy. He denies any PFTs being completed at [facility]. Patient was offered chemotherapy with concurrent radiation followed by durvalumab. Patient is here to follow-up on his further care. 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 aspirin - 81 mg 1 tab Daily 2. atorvastatin - 40 mg 1 tab Daily 3. calcium carb-D3-mag ox-zinc ox - 333 mg-133 unit -133 mg-5 mg 1 tab Daily 4. CoQ10 SG 100 - 100-100 mg-unit 1 Capsule Daily 5. doxazosin - 2 mg 1 tab Daily 6. ferrous sulfate - 325 mg (65 mg iron) 1 tab Daily 7. hydrALAZINE - 25 mg 1 tab Twice a Day 8. labetalol - 100 mg 1 tab Daily 9. melatonin - 5 mg 1 tab Every day before sleep 10. memantine - 5 mg 1 tab once daily 11. MEMANTINE HCL - 10 mg Twice a Day 12. multivitamin - 1 tab Daily 13. omeprazole - 20 mg 1 tab Daily 14. vitamin B complex - 1 Capsule Daily 15. Vitamin D3 - 2,000 unit 1 tab Daily 16. vitamin E - 400 unit 1 tab Daily Medications Last Reconciled by Fanny Baugh MD on 03/14/2025 ALLERGIES: No Known Drug Allergies REVIEW OF SYSTEMS: A complete 14-point review of systems was performed and is negative except as noted in interval history. PHYSICAL EXAMINATION: VITAL SIGNS: Temperature?98.1, B/P?119/78, Oxygen?Saturation?99% Weight?200?lbs (Change?since?02/28/25:?3?lbs) PAIN: 3 - Between mild and moderate pain ECOG Performance Status: 1 - Symptomatic; ambulatory; restricted in strenuous activity GENERAL APPEARANCE: Appears well, in no apparent distress, appropriately interactive. HEENT: Normocephalic, no temporal wasting, normal conjunctiva, no scleral icterus, normal hearing, lips without lesions, neck normal range of motion. CARDIOVASCULAR: Not assessed. PULMONARY: Normal respiratory effort, no respiratory distress or use of accessory muscles, speaking in full sentences, no tachypnea. EXTREMITIES: No pedal edema or cyanosis. SKIN: Normal skin appearance. NEUROLOGIC: Alert and oriented x4. PSHYCHIATRIC: Appropriate affect, mood normal, behavior normal, intact thought and speech. LABORATORY DATA: I have personally reviewed and interpreted each of the patient?s relevant lab tests, abnormal findings are below: Date 01/16/25 01/18/25 02/28/25 ??WHITE?BLOOD?COUNT?(Thou/mm3) 9.6 ? 7.9 ??RED?BLOOD?COUNT?(Miln/mm3) 4.68 ? 4.30?L ??HEMOGLOBIN?(gm/dl) 12.3?L ? 11.6?L ??HEMATOCRIT?(%) 37.7?L ? 34.7?L ??PLATELET?COUNT?(Thou/mm3) 230 ? 214 ??NEUTROPHILS?%,?AUTO?(%) 73 ? 71 ??LYMPH?%,?AUTO?(%) 10 ? 13 ??NEUTROPHILS,?AUTO?(Thou/mm3) 7.0 ? 5.6 ??GLUCOSE,RANDOM?(mg/dL) ? 115?H 107?H ??BLOOD?UREA?NITROGEN?(mg/dL) ? 18 16 ??CREATININE?(mg/dL) ? 1.40?H 1.30 ??SODIUM?(mmol/L) ? 140 140 ??POTASSIUM?(mmol/L) ? 4.2 4.4 ??CHLORIDE?(mmol/L) ? 106 105 ??CrCl?(CandG)?(ml/min) ? 56.81 60.14 ??AST/SGOT?(Unit/L) ? 17 19 ??ALT/SGPT?(Unit/L) ? 11 10 ??ALKALINE?PHOSPHATASE?(Unit/L) ? 71 61 ??BILIRUBIN,?TOTAL?(mg/dL) ? 0.3 0.6 ??PROTEIN?TOTAL?(gm/dl) ? 7.2 7.0 ??ALBUMIN,?SERUM?(gm/dl) ? 4.3 4.4 ??GLOBULIN?(gm/dl) ? 2.9 2.6 ??ALBUMIN/GLOBULIN?RATIO ? 1.5 1.7 ??CALCIUM,?SERUM?(mg/dL) ? 9.7 9.6 ??CALCIUM?SERUM?(CORRECTED)?(mg/dL) ? 9.7 9.6 ASSESSMENT/PLAN: #1 Limited stage small cell lung cancer As per documentation at [facility] patient's tumor has increased in size 2 to 3.2 cm left upper lobe solid mass biopsy-proven to be small cell 1.8 cm soft tissue irregularity in the anterior urinary bladder wall from bladder cancer s/p TURBT Brain MRI negative PFTs show emphysema Patient completed chemoradiation Carboplatin etoposide and durvalumab with radiation . PET-CT scan on 09/22/2024 shows no evidence of the previously noted 24mm pulmonary mass in the left lower lobe. No new pulmonary nodules were identified. These findings suggest a favorable response to treatment, potentially indicating remission. Patient Signatera testing was negative on 10/09/2024 and 11/19/2024 but his naterra on 02/07/2025 shows 0.02 Patient has also lost weight for last 3 months and it is concerning that she he is likely having progression PET CT scan was not approved by insurance Ordered CT scan chest abdomen pelvis Will change to chemotherapy as last chemo was more than 6 months ago Smoking Assessment: Patient has resumed smoking, which is concerning given their history of lung cancer and recent treatment. This behavior increases the risk of cancer recurrence and may further compromise lung function, especially considering the patient's history of lung surgery, radiation, and chemotherapy. Plan: - Strongly advise against smoking due to increased risk of cancer recurrence and further lung damage - Recommend nicotine patches or edibles as smoking cessation aids but patient want to continue 1 to 2 cigarettes he says he is not ready to quit - Educate on the importance of smoking cessation for maintaining remission and overall health Emphysema Assessment: Patient has a known diagnosis of emphysema, which may be exacerbated by recent cancer treatments and resumed smoking. Plan: - Recommend daily breathing exercises to improve lung capacity - Educate on the importance of smoking cessation to prevent further lung damage History of Cardiac Bypass Surgery Assessment: Patient has a history of cardiac bypass surgery, requiring ongoing cardiac monitoring. Plan: - Continue follow-up with non licensed operator ORDERS: Order # Description [id number] CT Scan + Chest + Abdomen and Pelvis + With Contrast [id number] MD Follow Up [id number] Scan + Chest + Abdomen and Pelvis RETURN TO CLINIC: I reviewed the diagnosis, prognosis, and recommended treatment/procedure options with the patient (and/or their legal patient intake representative), including the potential benefits, risks, side effects and alternative therapies. We also discussed the option of no treatment and the possibility of clinical trial participation, if applicable. All questions were addressed, and they demonstrated understanding. They provided informed consent to proceed with the proposed plan of care. BILLING AND COMPLIANCE: I reviewed external records from providers outside my specialty as summarized above. I spent a total of 50 minutes on this patient?s care on the day of their visit excluding time spent related to any billed procedures. This time includes time spent with the patient as well as time spent documenting in the medical record, reviewing patients records and tests, obtaining history, placing orders, communicating with other healthcare professionals, counseling the patient, family or caregiver, and/or care coordination for the diagnoses above. Electronically Signed by: Jose Rascon MD T: 1:02 PM CC: PCP: Aylin Taylor Referring: Aylin Taylor This document was completed utilizing speech recognition software. Grammatical errors, random word insertions, pronoun errors, and incomplete sentences are an occasional consequence of this system due to software limitations, ambient noise, and hardware issues. Any formal questions or concerns about the content, text or information contained within the body of this dictation should be directly addressed to the provider for clarification.
== END 2025-03-16 23:59 | disposition home or self-care (01) ==
LOC: SCTC 09:40
PROVIDERS: PCP Internal Medicine; Referring Provider Internal Medicine; Visit Provider Internal Medicine Hematology & Oncology
DX: Z51.11 Encounter for antineoplastic chemotherapy (principal); C34.12 Malignant neoplasm of upper lobe, left bronchus or lung; J90 Pleural effusion, not elsewhere classified; J43.9 Emphysema, unspecified; F17.210 Nicotine dependence, cigarettes, uncomplicated; C67.9 Malignant neoplasm of bladder, unspecified
CPT/HCPCS: 80053; 84443; 85025; 96367; 96413; 99212; A4216; J1642; J2405; J3490; J9173; G0463

== ENCOUNTER 2025-03-29 06:51 | Outpatient (RCR) | payer OTHER, SELFPAY ==
[2025-03-26 08:43] LABS: Basophils # (Auto) 0.1 Thou/mm3 (0.0-0.2); Basophils % (Auto) 1 % (0-2.5); Eosinophils # (Auto) 0.5 Thou/mm3 (0.0-0.5); Eosinophils % (Auto) 6 % (0-10); Hematocrit 36.4 % (41.0-53.0); Hemoglobin 12.4 g/dL (13.5-16.0); Immature Granulocytes Auto 0.03 Thou/mm3 (0.00-0.00); Lymphocytes # (Auto) 1.0 Thou/mm3 (1.0-4.8); Lymphocytes % (Auto) 13 % (10-50); Mean Corpuscular HGB Conc 34.1 g/dl (31.0-37.0); Mean Corpuscular Hemoglobin 27.9 pg (25.0-35.0); Mean Corpuscular Volume 82 fL (80-100); Monocytes # (Auto) 0.8 Thou/mm3 (0.0-0.8); Monocytes % (Auto) 10 % (0-12); Neutrophils # (Auto) 5.3 Thou/mm3 (1.8-7.7); Neutrophils % (Auto) 69 % (37-80); Nucleated Red Blood Cell # 0.00 Thou/mm3 (0.00-0.00); Nucleated Red Blood Cell % 0 /100 WBC (0); Platelet Count 190 Thou/mm3 (140-440); RDW Standard Deviation 49.2 fL (35.1-43.9); Red Blood Count 4.45 Miln/mm3 (4.50-5.90); White Blood Count 7.6 Thou/mm3 (3.8-10.6)
[2025-03-26 09:21] LABS: Free T3 2.8 pg/mL (2.3-4.2)
[2025-03-26 09:23] LABS: Alanine Aminotransferase 11 U/L (10-49); Albumin, Serum 4.5 gm/dL (3.4-4.8); Albumin/Globulin Ratio 1.9 (1.2-2.2); Alkaline Phosphatase 53 U/L (46-116); Anion Gap 7 (7-16); Aspartate Amino Transferase 15 U/L (0-34); BUN/Creatinine Ratio 12 Ratio (12-20); Bilirubin,Total 0.4 mg/dL (0.3-1.2); Blood Urea Nitrogen 14 mg/dL (9-23); Calcium 9.7 mg/dL (8.3-10.6); Calcium (Corrected) 9.7 mg/dL (8.5-10.1); Carbon Dioxide 27.0 mMol/L (20.0-31.0); Chloride 108 mMol/L (98-107); Creatinine (Component) 1.2 mg/dL (0.6-1.3); Globulin 2.4 gm/dL (2.3-3.5); Glucose 102 mg/dL (74-106); Osmolality,Calculated 283 (275-295); Potassium 4.2 mMol/L (3.4-5.1); Sodium 142 mMol/L (136-145); Thyroid Stimulating Hormone 1.50 uIU/mL (0.55-4.78); Total Protein 6.9 gm/dL (5.7-8.2); eGFR > 60 See Note
== END 2025-04-15 23:59 | disposition home or self-care (01) ==
LOC: SCTC 06:51
PROVIDERS: PCP Internal Medicine; Referring Provider Internal Medicine; Visit Provider Internal Medicine Hematology & Oncology
DX: Z51.11 Encounter for antineoplastic chemotherapy (principal); C34.12 Malignant neoplasm of upper lobe, left bronchus or lung; J43.9 Emphysema, unspecified; Z92.3 Personal history of irradiation; C67.9 Malignant neoplasm of bladder, unspecified; F17.200 Nicotine dependence, unspecified, uncomplicated; Z71.6 Tobacco abuse counseling
CPT/HCPCS: 36591; 80053; 84443; 84481; 85025; 96367; 96413; A4216; J1642; J2405; J3490; J9173

== ENCOUNTER → 2025-04-09 | Outpatient (CLI) | payer OTHER, SELFPAY ==
--- NOTE | 2025-04-09 15:30 | XR_ITS ---
EXAMINATION: MRI brain with intravenous contrast TECHNIQUE: Multiple axial sagittal coronal brain MRI images post intravenous administration 17 cc gadolinium Date and time: April 09, 2025, 1620 hours INDICATIONS: Diagnosis malignant neoplasm of unspecified part of unspecified bronchus or lung, post radiation chemotherapy, last inferior dizziness episodes a few months FINDINGS: Ventricles are normal in size and configuration 8 x 6 mm enhancing lesion right frontal parietal lobe, axial image 18 No effacement of cortical sulcal markings No mass effect upon the ventricular system Intact cranial vault IMPRESSION: 8 x 6 mm enhancing lesion right frontal parietal lobe, axial image 18, most consistent with cerebral metastasis
== END | disposition home or self-care (01) ==
LOC: SMRI 15:03
PROVIDERS: PCP Internal Medicine; Referring Provider Internal Medicine Hematology & Oncology; Visit Provider Internal Medicine Hematology & Oncology
DX: G93.89 Other specified disorders of brain (principal); C34.90 Malignant neoplasm of unspecified part of unspecified bronchus or lung
CPT/HCPCS: 70552; A9577

== ENCOUNTER → 2025-04-25 | Outpatient (CLI) | payer OTHER, SELFPAY ==
--- NOTE | 2025-04-25 15:00 | XR_ITS ---
Examination: CT chest with intravenous contrast CT abdomen with intravenous contrast CT pelvis with intravenous contrast 2-D coronal and sagittal reconstructions Time of exam: April 25, 2025, 1501 hours INDICATIONS: Diagnosis lung cancer, 24 mm pulmonary mass left upper lobe on CT chest December 22, 2023, not visualized on PET/CT scan September 22, 2024, restaging CTDI: vol (mGy) : 15.5 DLP: (mGycm): 706 Technique: Multiple axial images of the chest, abdomen and pelvis with intravenous contrast, 3.0 mm slice thickness. Images obtained post intravenous injection Isovue 370 60 cc. 2-D sagittal and coronal reconstructions. Low dose protocols were performed. One or more of the following dose reduction techniques were used; automated exposure control, adjustment of the mA and/or KV according to patient size, use of iterative reconstruction technique. Findings: Thoracic aortic calcification no aneurysmal dilatation No pulmonary artery filling defects Subcentimeter left tracheobronchial lymph nodes 4 mm pulmonary nodule right midlung Significant pneumonia in the left lower lobe which would obscure any pulmonary nodule, mild left pleural fluid Mild enlargement cardiac contour Mitral valvular calcification No visualized liver or splenic lesion No gallstones No pancreatic or adrenal mass Moderate renal scar formation Abdominal aortic infrarenal aneurysm, AP dimension 3.4 cm with aortoiliac endoluminal stent Normal appendix No bowel obstruction No pathologic abdominal or pelvic lymphadenopathy No bowel obstruction Urinary bladder intact Prostate calcification no prostatomegaly Advanced degenerative disc disease at the lower 3 lumbar levels Severe osteopenia Moderate narrowing hip joints IMPRESSION: 4 mm pulmonary nodule right midlung Significant pneumonia left lower lobe which would obscure any pulmonary nodules, mild left pleural fluid Infrarenal abdominal aortic aneurysm 3.4 cm with patent aortoiliac endoluminal stent No bowel obstruction No abdominal or pelvic lymphadenopathy.
== END | disposition home or self-care (01) ==
LOC: SCAT 14:10
PROVIDERS: PCP Internal Medicine; Referring Provider Internal Medicine Hematology & Oncology; Visit Provider Internal Medicine Hematology & Oncology
DX: R91.1 Solitary pulmonary nodule (principal); J18.9 Pneumonia, unspecified organism; I71.43 Infrarenal abdominal aortic aneurysm, without rupture; C34.90 Malignant neoplasm of unspecified part of unspecified bronchus or lung
CPT/HCPCS: 71260; 74177; A4649; Q9967

== ENCOUNTER 2025-05-14 08:50 | Outpatient (RCR) | payer OTHER, SELFPAY ==
--- NOTE | 2025-04-24 13:31 | CTCFLWUP_ITS ---
Patient: GRETA STEEN : 1945 Page 2 of 2 FOLLOW UP NOTE DATE OF SERVICE: 04/23/2025 NAME: GRETA STEEN ACCOUNT: [id number] : 1945 AGE: 79 Visit summary --patient have headache. Patient is here to discuss MRI results. He is scheduled for CT scan on 04/25/2025. MRI shows small lesion. Will be seeing Dr. Zazueta for immediate radiation.-- Will follow-up on the CT scan before we add chemotherapy to his immunotherapy.. History of Present Illness Mr. Wali Lindsay, a patient with a history of lung cancer and emphysema, presents for follow-up after completing chemoradiation. The patient recently underwent a PET-CT scan on 09/22/2024, which showed no evidence of the previously noted 24mm pulmonary mass in the left lower lobe. Since his last visit on 07/18/2024, the patient has completed chemoradiation with a positive outcome, as the PET scan is now negative and all lung abnormalities have resolved. However, the patient has resumed smoking despite previous treatments and advice against it due to lung damage from surgery, radiation, and chemotherapy. He continues to have emphysema and is scheduled for another infusion of durvalumab as part of his ongoing treatment plan. The patient reports no side effects from his last treatment. A moderate left pleural effusion was noted on the recent PET-CT, which is likely due to radiation damage. The patient's emphysema persists, affecting his lung capacity. Despite the positive response to cancer treatment, the patient's decision to resume smoking may impact his overall health status and lung function. Medications and Supplements - Durvalumab - Administered via infusion - Continuing for 24 months - No side effects reported from last treatment Review of Systems General: Negative for weight loss, fatigue. Respiratory: Negative for side effects from treatment. Objective: Laboratory, Imaging, and Diagnostic Test Results - PET-CT scan (09/22/2024): - 24mm pulmonary mass in left lower lobe (noted on CT chest on 12/22/2023) is not currently visualized - No new pulmonary nodules - Moderate left pleural effusion Patient have completed his concurrent chemo radiotherapy ONCOLOGY HISTORY:?[facility] Oncology Hx? 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 DATE OF DIAGNOSIS: 04/09/2024 STAGE/TNM: TREATMENT HISTORY: Care?Plan Start?Date Cycle Day Intent 1?Small?cell,?Atezo,?Carbo,?Etoposide?IMpower?Study 04/09/2024 1 21 Curative?(primary) CISplatin?75?mg/m*2,?Etoposide?with?XRT?for?limited?small?cell?lung?ca 04/09/2024 1 21 Curative?(adjuvant) SC-CASPIAN?study-?-Carbo/Etoposide?+?Durvolumab 05/22/2024 1 21 Curative?(primary) Durvalumab?maintenance?cholangiocarcinoma?regimen?2 09/06/202406 13 Maintenance HISTORY OF PRESENT ILLNESS: 79-year-old male who had lung biopsy on 01/05/2024 which showed neuroendocrine tumor consistent with small cell lung cancer. Patient has limited stage small cell lung cancer. Patient has been a smoker since the age of 16 and is a current smoker. Patient unfortunately also had a TURBT on 1013 and was diagnosed with bladder cancer. Patient was planned for chemotherapy with gemcitabine intravesically weekly but patient missed the appointment. Patient was to get gemcitabine and docetaxel weekly application. Patient at baseline is on room air. Patient want to keep his treatment at reportable. He says he saw the chauffeur who recommended chemo RT. He was not offered mediastinoscope he or referral to surgeon for possible lobectomy. He denies any PFTs being completed at [facility]. Patient was offered chemotherapy with concurrent radiation followed by durvalumab. Patient is here to follow-up on his further care. 01/05/2024 CT-guided biopsy showed neuroendocrine tumors favoring small cell cancer 02/28/2024 TURBT showed bladder cancer OTHER MEDICAL HISTORY/CONDITIONS: Small cell lung cancer Small cell lung cancer - 12/2023 Bladder cancer - dx 12/28/23 CAD HTN Hyperlipidemia Insomia TURB - 12/28/23 - [facility] CABG x 3 - 2017- Charles - AAA repair - 2017 - Charles Left TKA - 2015 FAMILY HISTORY: Cancer History - - Denies family history cancer Family Cancer History - Denied - Yes SOCIAL HISTORY: Occupational History - Retired - [employer] Education Level - Completed High School Marital Status - Tobacco Use Note - Smoked 60 yrs - 1PPD - still smoking- ETOH Use Note - Denies Drug Note - Denies Abuse/Neglect Note - Denies Social History Note 2 - Lifes with [employer] HISTORY: MEDICATIONS: 1. aspirin - 81 mg 1 tab Daily 2. atorvastatin - 40 mg 1 tab Daily 3. calcium carb-D3-mag ox-zinc ox - 333 mg-133 unit -133 mg-5 mg 1 tab Daily 4. CoQ10 SG 100 - 100-100 mg-unit 1 Capsule Daily 5. dexamethasone - 1 mg 2 tab every 12 hrs 6. doxazosin - 2 mg 1 tab Daily 7. ferrous sulfate - 325 mg (65 mg iron) 1 tab Daily 8. hydrALAZINE - 25 mg 1 tab Twice a Day 9. labetalol - 100 mg 1 tab Daily 10. melatonin - 5 mg 1 tab Every day before sleep 11. memantine - 5 mg 1 tab once daily 12. MEMANTINE HCL - 10 mg Twice a Day 13. multivitamin - 1 tab Daily 14. omeprazole - 20 mg 1 tab Daily 15. vitamin B complex - 1 Capsule Daily 16. Vitamin D3 - 2,000 unit 1 tab Daily 17. vitamin E - 400 unit 1 tab Daily?Palabra Meds? Medications Last Reconciled by Fanny Baugh MD on 04/23/2025 ALLERGIES: No Known Drug Allergies REVIEW OF SYSTEMS: A complete 14-point review of systems was performed and is negative except as noted in interval history. PHYSICAL EXAMINATION:?CloneBlock PE? VITAL SIGNS: Temperature?97.7, B/P?110/71, Oxygen?Saturation?96% Weight?187?lbs (Change?since?03/29/25:?-0.8?lbs) PAIN: 0 - No pain ECOG Performance Status: 0 - Asymptomatic and fully active GENERAL APPEARANCE: Appears well, in no apparent distress, appropriately interactive. HEENT: Normocephalic, no temporal wasting, normal conjunctiva, no scleral icterus, normal hearing, lips without lesions, neck normal range of motion. CARDIOVASCULAR: Not assessed. PULMONARY: Normal respiratory effort, no respiratory distress or use of accessory muscles, speaking in full sentences, no tachypnea. EXTREMITIES: No pedal edema or cyanosis. SKIN: Normal skin appearance. NEUROLOGIC: Alert and oriented x4. PSHYCHIATRIC: Appropriate affect, mood normal, behavior normal, intact thought and speech. LABORATORY DATA: I have personally reviewed and interpreted each of the patient?s relevant lab tests, abnormal findings are below: Date 02/28/25 03/26/25 ??WHITE?BLOOD?COUNT?(Thou/mm3) 7.9 7.6 ??RED?BLOOD?COUNT?(Miln/mm3) 4.30?L 4.45?L ??HEMOGLOBIN?(gm/dl) 11.6?L 12.4?L ??HEMATOCRIT?(%) 34.7?L 36.4?L ??PLATELET?COUNT?(Thou/mm3) 214 190 ??NEUTROPHILS?%,?AUTO?(%) 71 69 ??LYMPH?%,?AUTO?(%) 13 13 ??NEUTROPHILS,?AUTO?(Thou/mm3) 5.6 5.3 ??GLUCOSE,RANDOM?(mg/dL) 107?H 102 ??BLOOD?UREA?NITROGEN?(mg/dL) 16 14 ??CREATININE?(mg/dL) 1.30 1.20 ??SODIUM?(mmol/L) 140 142 ??POTASSIUM?(mmol/L) 4.4 4.2 ??CHLORIDE?(mmol/L) 105 108?H ??CrCl?(CandG)?(ml/min) 60.14 61.39 ??AST/SGOT?(Unit/L) 19 15 ??ALT/SGPT?(Unit/L) 10 11 ??ALKALINE?PHOSPHATASE?(Unit/L) 61 53 ??BILIRUBIN,?TOTAL?(mg/dL) 0.6 0.4 ??PROTEIN?TOTAL?(gm/dl) 7.0 6.9 ??ALBUMIN,?SERUM?(gm/dl) 4.4 4.5 ??GLOBULIN?(gm/dl) 2.6 2.4 ??ALBUMIN/GLOBULIN?RATIO 1.7 1.9 ??CALCIUM,?SERUM?(mg/dL) 9.6 9.7 ??CALCIUM?SERUM?(CORRECTED)?(mg/dL) 9.6 9.7 ASSESSMENT/PLAN:?Charles Rascon Assessment/Plan? #1 metastatic small cell lung cancer Initially in February 2024, brain MRI was negative Patient had limited stage disease in the lungs Patient was treated with concurrent chemoradiation followed by durvalumab patient completed chemoradiation Carboplatin etoposide and durvalumab maintenance PET-CT scan on 09/22/2024 shows no evidence of the previously noted 24mm pulmonary mass in the left lower lobe. No new pulmonary nodules were identified. These findings suggest a favorable response to treatment, potentially indicating remission. Patient Signatera testing was negative on 10/09/2024 and 11/19/2024 but his naterra on 02/07/2025 shows 0.02 Patient has also lost weight for last 3 months and it is concerning that she he is likely having progression CT scan still not available Patient's MRI done on 04/09/2025 showed a new lesion in the brain DOMINIC referral placed to radiation to radiate the brain Also started on dexamethasone as patient does have some headache Need CT scan chest abdomen pelvis to see any systemic recurrence in the lungs Patient will be a good candidate for tarlatamab in the future and will place a referral to [place] smoking Assessment: Patient has resumed smoking, which is concerning given their history of lung cancer and recent treatment. This behavior increases the risk of cancer recurrence and may further compromise lung function, especially considering the patient's history of lung surgery, radiation, and chemotherapy. Plan: - Strongly advise against smoking due to increased risk of cancer recurrence and further lung damage - Recommend nicotine patches or edibles as smoking cessation aids but patient want to continue 1 to 2 cigarettes he says he is not ready to quit - Educate on the importance of smoking cessation for maintaining remission and overall health Emphysema Assessment: Patient has a known diagnosis of emphysema, which may be exacerbated by recent cancer treatments and resumed smoking. Plan: - Recommend daily breathing exercises to improve lung capacity - Educate on the importance of smoking cessation to prevent further lung damage History of Cardiac Bypass Surgery Assessment: Patient has a history of cardiac bypass surgery, requiring ongoing cardiac monitoring. 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 We also discussed the option of no treatment and the possibility of clinical trial participation, if applicable. All questions were addressed, and they demonstrated understanding. They provided informed consent to proceed with the proposed plan of care. BILLING AND COMPLIANCE: I reviewed external records from providers outside my specialty as summarized above. I spent a total of 50 minutes on this patient?s care on the day of their visit excluding time spent related to any billed procedures. This time includes time spent with the patient as well as time spent documenting in the medical record, reviewing patients records and tests, obtaining history, placing orders, communicating with other healthcare professionals, counseling the patient, family or caregiver, and/or care coordination for the diagnoses above. Electronically Signed by: Jose Rascon MD T: 1:28 PM CC: PCP: Aylin Taylor Referring: Aylin Taylor This document was completed utilizing speech recognition software. Grammatical errors, random word insertions, pronoun errors, and incomplete sentences are an occasional consequence of this system due to software limitations, ambient noise, and hardware issues. Any formal questions or concerns about the content, text or information contained within the body of this dictation should be directly addressed to the provider for clarification.
[2025-04-25 13:57] LABS: Basophils # (Auto) 0.1 Thou/mm3 (0.0-0.2); Basophils % (Auto) 1 % (0-2.5); Eosinophils # (Auto) 0.5 Thou/mm3 (0.0-0.5); Eosinophils % (Auto) 7 % (0-10); Hematocrit 37.2 % (41.0-53.0); Hemoglobin 12.4 g/dL (13.5-16.0); Immature Granulocytes Auto 0.02 Thou/mm3 (0.00-0.00); Lymphocytes # (Auto) 1.0 Thou/mm3 (1.0-4.8); Lymphocytes % (Auto) 13 % (10-50); Mean Corpuscular HGB Conc 33.3 g/dl (31.0-37.0); Mean Corpuscular Hemoglobin 27.9 pg (25.0-35.0); Mean Corpuscular Volume 84 fL (80-100); Monocytes # (Auto) 0.7 Thou/mm3 (0.0-0.8); Monocytes % (Auto) 9 % (0-12); Neutrophils # (Auto) 5.5 Thou/mm3 (1.8-7.7); Neutrophils % (Auto) 70 % (37-80); Nucleated Red Blood Cell # 0.00 Thou/mm3 (0.00-0.00); Nucleated Red Blood Cell % 0 /100 WBC (0); Platelet Count 207 Thou/mm3 (140-440); RDW Standard Deviation 49.1 fL (35.1-43.9); Red Blood Count 4.45 Miln/mm3 (4.50-5.90); White Blood Count 7.9 Thou/mm3 (3.8-10.6)
[2025-04-25 14:27] LABS: Alanine Aminotransferase 10 U/L (10-49); Albumin, Serum 4.5 gm/dL (3.4-4.8); Albumin/Globulin Ratio 1.6 (1.2-2.2); Alkaline Phosphatase 55 U/L (46-116); Anion Gap 11 (7-16); Aspartate Amino Transferase 17 U/L (0-34); BUN/Creatinine Ratio 15 Ratio (12-20); Bilirubin,Total 0.4 mg/dL (0.3-1.2); Blood Urea Nitrogen 20 mg/dL (9-23); Calcium 9.7 mg/dL (8.3-10.6); Calcium (Corrected) 9.7 mg/dL (8.5-10.1); Carbon Dioxide 25.5 mMol/L (20.0-31.0); Chloride 106 mMol/L (98-107); Creatinine (Component) 1.3 mg/dL (0.6-1.3); Globulin 2.9 gm/dL (2.3-3.5); Glucose 109 mg/dL (74-106); Osmolality,Calculated 286 (275-295); Potassium 4.4 mMol/L (3.4-5.1); Sodium 142 mMol/L (136-145); Thyroid Stimulating Hormone 1.90 uIU/mL (0.55-4.78); Total Protein 7.4 gm/dL (5.7-8.2); eGFR 57 See Note
== END 2025-05-16 23:59 | disposition home or self-care (01) ==
LOC: SCTC 08:50
PROVIDERS: Internal Medicine Hematology & Oncology; PCP Internal Medicine; Referring Provider Internal Medicine; Visit Provider Radiology Therapeutic Radiology
DX: Z51.11 Encounter for antineoplastic chemotherapy (principal); C34.12 Malignant neoplasm of upper lobe, left bronchus or lung; J43.9 Emphysema, unspecified; J90 Pleural effusion, not elsewhere classified; F17.210 Nicotine dependence, cigarettes, uncomplicated
CPT/HCPCS: 36591; 77290; 77334; 77387; 80053; 84443; 85025; 96367; 96413; 99212; 99213; A4216; J1642; J2405; J3490; J9173; G0463